=== PATIENT | male | born 1935 | race Caucasian/White ===

== ENCOUNTER 2019-09-11 20:17 | Inpatient (IN) | payer MEDICARE ==
[~2019-09-11 20:17] MED LIST: Iopamidol-370 76% 500 ML 1 ML ONE
[2019-09-11] MEDS ORDERED: Ondansetron PF 4 MG/2 ML Vial ONE (21:09)
[2019-09-11] MEDS ORDERED: Morphine 2 MG/ML SYRINGE ONE (21:09)
[2019-09-11 21:22] LABS: ALT (SGPT) 16 U/L (8-55); AST (SGOT) 17 U/L (5-34); Albumin 4.2 g/dL (3.4-4.8); Alkaline Phosphatase 55 U/L (40-110); Anion Gap 15 mmol/L (10-20); BUN (Urea Nitrogen) 18 mg/dL (9.8-20.1); Band 19 % (5-11); Bilirubin, Total 2.6 mg/dL (0.2-1.2); Calc. Creatinine Clearance 0 mL/min (70-130); Calcium 9.6 mg/dL (7.8-10.44); Carbon Dioxide 23 mmol/L (23-31); Chloride 104 mmol/L (98-107); Estimated GFR-MDRD 66; Globulin 3.2 g/dL (2.4-3.5); Glucose 133 mg/dL (83-110); Hemoglobin 15.2 g/dL (12.0-16.0); Lipase 4 U/L (8-78); Lymphocytes 6 % (21-51); MDiff Complete? YES; Mean Corpuscular HGB CONC 34.6 g/dL (32.0-36.0); Mean Corpuscular Hemoglobin 30.7 pg (27.0-31.0); Mean Corpuscular Volume 88.7 fL (78.0-98.0); Mean Platelet Volume 6.8 fL (7.4-10.4); Monocytes 3 % (0-10); Neutrophil 72 % (42-75); Platelet Count 503 thou/uL (130-400); Potassium 3.7 mmol/L (3.5-5.1); Protein, Total 7.4 g/dL (6.0-8.3); RBC Distribution Width 13.1 % (11.5-14.5); Red Blood Cell (RBC) Count 4.96 mill/uL (4.20-5.40); Sodium 138 mmol/L (136-145); White Blood Cell (WBC) Count 22.3 thou/uL (4.8-10.8)
[2019-09-11 22:01] LABS: Bacteria/HPF None Seen HPF (None Seen); Bilirubin Negative (Negative); Blood, Urine Negative (Negative); Clarity Clear (Clear); Glucose, Urine (Dipstick) Normal (Negative); Ketone, Urine Negative (Negative); Leukocyte Negative Leu/uL (Negative); Nitrite Negative (Negative); Protein, Urine (Dipstick) 30 mg/dL (Neg-Trace); RBC/HPF 0-3 HPF (0-3); Specific Gravity, Urine 1.026 (1.002-1.036); Squamous Epithelial 0-3 HPF (0-3); Urobilinogen Normal mg/dL (Less than 2); WBC/HPF 0-3 HPF (0-3)
--- NOTE | 2019-09-11 22:01 | CT ---
CT Abdomen Pelvis W Con History: Lower abdomen pain Comparison: None. Findings: Mild scarring atelectasis lung bases. No pericardial effusion. Aortic contour is nonaneurysmal. Liver is unremarkable. Celiac trunk and superior mesenteric arteries are patent. No hydronephrosis. Small exophytic hypodensity inferior pole right kidney likely a cyst. Cholelithiasis without cholecys titis. Calcified granulomas of the spleen. Pancreas is unremarkable. Normal proximal small bowel rotation. There is high-grade some mucosal edema and thickening of the cecum which is redundant. There is also ascending colon portion of the transverse colon which also has mild wall thickening. Mild inflammation of the omentum. The right colon and ileocolic branches of the superior mesenteric artery are patent. The appendix is visualized and appears relatively normal. Facet arthrosis lower lumbar spine. No acute osseous abnormality. Modic type III endplate change at L 5-S1. Impression: 1. Findings of cecal, ascending colon and transverse colitis likely infectious or inflammatory given the superior mesenteric artery as well as the right colic and transverse colic branches are patent. Given patient's age, follow-up colonoscopy after treatment recommended. 2. Cholelithiasis without cholecystitis.
[2019-09-11] MEDS ORDERED: Cefepime 2 GM VIAL ONE (22:21)
[2019-09-11] MEDS ORDERED: Vancomycin 1 GM/200 ML BAG ONE (23:00)
[2019-09-12] MEDS ORDERED: Succinylcholine Chloride 20 MG/ML 10 ml SYRINGE FS ONE (00:30)
[2019-09-12] MEDS ORDERED: Fentanyl 100 MCG/2 ML VIAL ONE ×2 (00:43→00:45)
[2019-09-12] MEDS ORDERED: Ondansetron ODT 4 MG TAB PO PRN (02:05)
[2019-09-12] MEDS ORDERED: Ondansetron PF 4 MG/2 ML Vial IVP PRN (02:05)
[2019-09-12] MEDS ORDERED: Acetaminophen 325 MG TAB PO PRN (02:05)
[2019-09-12] MEDS ORDERED: Ventilator Sedation Protocol 1 EACH FS ONE (02:05)
[2019-09-12] MEDS ORDERED: Acetaminophen 650 MG Suppository PR PRN (02:05)
[2019-09-12] MEDS ORDERED: Fentanyl BOLUS 250 ML IVPB PRN (02:22)
[2019-09-12] MEDS ORDERED: fentaNYL Citrate/PF 2,000 MCG in Sodium Chloride 0.9% 60 ML IV SCH (02:22)
[2019-09-12] MEDS ORDERED: Propofol BOLUS 1,000 MG/100 ML VIAL IV PRN (02:22)
[2019-09-12] MEDS ORDERED: DISCONTINUE PREVIOUS NARCOTIC PAIN MEDICATIONS AND BENZODIAZEPINES FS SCH (02:22)
--- NOTE | 2019-09-12 02:27 | PDOC.HHP ---
Hospitalist HPI - History of Present Illness abdominal pain History of Present Illness: most of the history was obtain from ED and old records. during my evaluation patient was sedated and on MV. no family member were present at the moment of my evaluation. Case of an 84y/o male with pmhx of htn dm and bone cancer who comes to hospital with abdominal pain. apparently patient was on his usual state of health until 1 day ago when he started with abdominal pain with associated nausea and vomiting. he denies any fever chills diarrhea or dysuria. patient receive abd abdominal ct and was diagnose with extensive colitis. patient is a and was going to be transferred to [facility] but before transfer took place patient started with rapidly progressive sob and dyspnea that required oxygen supplementation and subsequent intubation. Hospitalist ROS - Review of Systems ROS unobtainable: due to endotracheal tube Hospitalist History - Past Medical History Source: old records Cardiac: reports: HTN Heme/Onc: reports: Cancer Endocrine: reports: Diabetes - Past Surgical History Other Surgical History: back surgery - Family History Other Family History: unable to asses due to MV - Exam General - other findings: sedated on MV Eye: PERRL, anicteric sclera ENT: normocephalic atraumatic, no oropharyngeal lesions Neck: supple, symmetric, no JVD Heart: RRR, no murmur, no gallops Respiratory: CTAB, no wheezes, no rales, no ronchi Gastrointestinal: soft, non-distended, normal bowel sounds Extremities: no cyanosis, no clubbing, no edema Skin: normal turgor, no lesions, no rashes Neurological - other findings: sedated Musculoskeletal: normal tone, no muscle wasting Psychiatric - other findings: sedated Hospitalist Results - Labs Result Diagrams: 09/11/19 20:50 09/11/19 20:50 Lab results: WBC 22.3 thou/uL (4.8-10.8) H 09/11/19 20:50 Hgb 15.2 g/dL (12.0-16.0) 09/11/19 20:50 Hct 44.0 % (36.0-47.0) 09/11/19 20:50 MCV 88.7 fL (78.0-98.0) 09/11/19 20:50 Plt Count 503 thou/uL (130-400) H 09/11/19 20:50 Band Neuts % (Manual) 19 % (5-11) H 09/11/19 20:50 Sodium 138 mmol/L (136-145) 09/11/19 20:50 Potassium 3.7 mmol/L (3.5-5.1) 09/11/19 20:50 Chloride 104 mmol/L (98-107) 09/11/19 20:50 Carbon Dioxide 23 mmol/L (23-31) 09/11/19 20:50 BUN 18 mg/dL (9.8-20.1) 09/11/19 20:50 Creatinine 0.83 mg/dL (0.6-1.1) 09/11/19 20:50 Glucose 133 mg/dL (83-110) H 09/11/19 20:50 Lactic Acid 1.8 mmol/L (0.5-2.2) 09/11/19 21:57 Calcium 9.6 mg/dL (7.8-10.44) 09/11/19 20:50 Total Bilirubin 2.6 mg/dL (0.2-1.2) H 09/11/19 20:50 AST 17 U/L (5-34) 09/11/19 20:50 ALT 16 U/L (8-55) 09/11/19 20:50 Alkaline Phosphatase 55 U/L (40-110) 09/11/19 20:50 Troponin I 0.042 ng/mL (< 0.028) H 09/12/19 01:42 Serum Total Protein 7.4 g/dL (6.0-8.3) 09/11/19 20:50 Albumin 4.2 g/dL (3.4-4.8) 09/11/19 20:50 Lipase 4 U/L (8-78) L 09/11/19 20:50 Urine Ketones Negative mg/dL (Negative) 09/11/19 21:45 Urine Blood Negative (Negative) 09/11/19 21:45 Urine Nitrite Negative (Negative) 09/11/19 21:45 Ur Leukocyte Esterase Negative Landry/uL (Negative) 09/11/19 21:45 Urine RBC 0-3 HPF (0-3) 09/11/19 21:45 Urine WBC 0-3 HPF (0-3) 09/11/19 21:45 Ur Squamous Epith Cells 0-3 HPF (0-3) 09/11/19 21:45 Urine Bacteria None Seen HPF (None Seen) 09/11/19 21:45 - EKG Interpretation EKG: no acute st changes - Radiology Interpretation Chest x-ray Additional Comment: cardiomegaly, wide mediastinum - unchaged since 2004\ ett + ogt seen Hospitalist H&P A/P - Problem (1) Respiratory failure requiring intubation Code(s): J96.90 - RESPIRATORY FAILURE, UNSP, UNSP W HYPOXIA OR HYPERCAPNIA Status: Acute (2) Sepsis Code(s): A41.9 - SEPSIS, UNSPECIFIED ORGANISM Status: Acute (3) Colitis Code(s): K52.9 - NONINFECTIVE GASTROENTERITIS AND COLITIS, UNSPECIFIED Status : Acute (4) HTN (hypertension) Code(s): I10 - ESSENTIAL (PRIMARY) HYPERTENSION Status: Acute (5) Diabetes Code(s): E11.9 - TYPE 2 DIABETES MELLITUS WITHOUT COMPLICATIONS Status: Acute - Plan Plan: 84y/o male with the stated pmhx who comes to hospital due to abdominal pain. Dx with colitis, was been transfered to [facility]. Started with sudden respiratory distress that required mechanical ventilation respiratory failure - intubated at the ED - unclear reason for decompensation. DDx PE / fluid overload / acs. unable to get cta due to pt already receive contrast for abdominal ct. will send d dimer and start full anticoagulation prophylactically until PE is r/o. will also order serial troponins and 2decho - pulmo /crit consulted -f/u abgs sepsis / colitis - tachycardia with elevated wbc and abd ct consistent with colitis - f/u blood, stools and urine cultures - normal LA - continue with IV hydration - on cefepime and vanc DM - npo - accu checks q 6hrs, ss htn - holding medication for now in the setting of sepsis
[2019-09-12] MEDS: Sodium Chloride 0.9% 1,000 ML IV SCH ×3 (02:30→17:55)
[2019-09-12] MEDS ORDERED: Vancomycin 1 GM in Premix Bag 1 BAG IVPB SCH (02:30)
[2019-09-12 02:33] LABS: CKMB 2.8 ng/mL (0-6.6)
[2019-09-12] MEDS ORDERED: Dextrose 5% in Water 1,000 ML IV PRN (02:34)
[2019-09-12] MEDS ORDERED: Dextrose 50% Abboject 50 ML SYRINGE SLOW IVP PRN (02:34)
[2019-09-12] MEDS ORDERED: metroNIDAZOLE 500 MG in Premix Bag 1 BAG IVPB SCH ×2 (02:45→04:00)
[2019-09-12] MEDS ORDERED: Enoxaparin Sodium 100 MG/ML SYRINGE SC SCH ×2 (02:45→21:00)
[2019-09-12] MEDS ORDERED: Norepinephrine 8 MG/0.9% NS 250 ML ONE (03:36)
[2019-09-12] MEDS ORDERED: Norepinephrine 8 MG/0.9% NS 250 ML IVPB SCH (04:19)
[2019-09-12] MEDS ORDERED: Sodium Chloride 0.9% 1,000 ML IV SCH (04:45)
[2019-09-12 05:18] LABS: Anion Gap 14 mmol/L (10-20); BUN (Urea Nitrogen) 17 mg/dL (8.4-25.7); Calc. Creatinine Clearance 98 mL/min (70-130); Carbon Dioxide 19 mmol/L (23-31); Chloride 110 mmol/L (98-107); Estimated GFR-MDRD 90; Potassium 3.7 mmol/L (3.5-5.1); Sodium 139 mmol/L (136-145)
[2019-09-12 05:19] LABS: ALT (SGPT) 13 U/L (8-55); AST (SGOT) 23 U/L (5-34); Albumin 3.5 g/dL (3.4-4.8); Alkaline Phosphatase 70 U/L (40-110); Bilirubin, Total 1.7 mg/dL (0.2-1.2); Calcium 8.1 mg/dL (7.8-10.44); Globulin 2.7 g/dL (2.4-3.5); Glucose 133 mg/dL (83-110); Magnesium 1.8 mg/dL (1.6-2.6); Phosphorus 3.2 mg/dL (2.3-4.7); Protein, Total 6.2 g/dL (5.8-8.1)
[2019-09-12 05:20] LABS: Troponin I 0.429 ng/mL (< 0.028)
[2019-09-12 05:23] LABS: Lactic Acid 1.5 mmol/L (0.5-2.2)
[2019-09-12 05:53] LABS: Band 29 % (5-11); Hemoglobin 13.7 g/dL (14.0-18.0); Lymphocytes 4 % (21-51); MDiff Complete? YES; Mean Corpuscular HGB CONC 32.3 g/dL (32.0-36.0); Mean Corpuscular Hemoglobin 29.6 pg (27.0-31.0); Mean Corpuscular Volume 91.7 fL (78.0-98.0); Mean Platelet Volume 7.2 fL (7.4-10.4); Monocytes 1 % (0-10); Neutrophil 66 % (42-75); Platelet Count 441 thou/uL (130-400); RBC Distribution Width 13.1 % (11.5-14.5); Red Blood Cell (RBC) Count 4.62 mill/uL (4.70-6.10); White Blood Cell (WBC) Count 21.3 thou/uL (4.8-10.8)
[2019-09-12 06:57] LABS: Actual Bicarbonate (HCO3a) 20.7 mEq/L (22-28); Base Excess (BEa) -5.8 mEq/L (-2.0 to +3.0); CO2 Tension 44.5 mmHg (35.0-45.0); Calcium, Ionized (arterial) 1.16 mmol/L (1.12-1.30); Carboxyhemoglobin (COHb) 0.4 gm% (0.0-3.0); Hemoglobin (Hb) 14.1 g/dL (14.0-18.0); O2 Tension (PaO2), arterial 70.1 mmHg (> 60.0); Potassium - ABG Lab 3.57 mmol/L (3.70-5.30); pH, Arterial 7.29 (7.35-7.45)
[2019-09-12 07:42] LABS: Puncture Site RRAD
[2019-09-12 07:43] LABS: ALV-art Gradient 373.375 (0-20)
--- NOTE | 2019-09-12 07:57 | RAD ---
PORTABLE CHEST: DATE: 09/12/2019. PROVIDED CLINICAL HISTORY: Sepsis. FINDINGS: Comparison 09/12/2019. Examination is rotated, limiting assessment. Allowing for differences in posit ion, a significant interval change with respect to the prior examination is not apparent. IMPRESSION: As above. POS: MIGUEL
--- NOTE | 2019-09-12 08:43 | RAD ---
PORTABLE CHEST: DATE: 09/12/2019. PROVIDED CLINICAL HISTORY: Respiratory insufficiency. FINDINGS: Comparison 09/12/2019, 12:30 a.m. Interval placement of endotracheal tube, the tip of which projects j ust caudal to the thoracic inlet. An enteric catheter is now present, the tip of which is not visual ized but is below the diaphragm. Additional significant interval change with respect to the prior ex amination is not apparent. IMPRESSION: As above. POS: MIGUEL
[2019-09-12] MEDS ORDERED: Prevnar 13-Val Conj/PF 0.5 ML SYRINGE IM ONE (09:00)
--- NOTE | 2019-09-12 09:05 | RAD ---
PORTABLE CHEST: DATE: 09/12/2019. PROVIDED CLINICAL HISTORY: Shortness of breath. FINDINGS: No comparisons. The cardiac silhouette appears enlarged. Prominence of the pulmonary vasculature an d pulmonary interstitium. No focal consolidation, pleural fluid, or pneumothorax apparent. IMPRESSION: Cardiomegaly and findings suggesting congestive failure. POS: MIGUEL
[2019-09-12] MEDS: Cefepime 2 GM in Sodium Chloride 0.9% 100 ML IVPB SCH ×2 (09:50→22:01)
[2019-09-12] MEDS: Famotidine/PF 20 mg/2ml Vial SLOW IVP SCH ×2 (09:50→22:01)
--- NOTE | 2019-09-12 13:28 | CON ---
DATE OF CONSULTATION: 09/12/2019 HISTORY OF PRESENT ILLNESS: Daniel Harper is an 84-year-old male. He has been consulted by the nursing staff because of his presence in Critical Care Unit. According to the admission history and physical, he presented with abdominal pain and was intubated. His CT of his abdomen shows right transverse colon inflammatory changes. [facility], [facility] He has never been here before on looking at the records. PAST MEDICAL HISTORY: Remarkable for, 1. Some type of bone cancer, it is unclear whether or not this is myeloma. 2. History of hypertension. I did find a note from [address] Yuen stating he had a long history of alcohol abuse, hypertension, and alcohol withdrawal, treated with Librium. He also has a history of alcoholic hepatitis. He is reported to be a smoker at that time. FAMILY HISTORY: Negative for lung disease in early age. REVIEW OF SYSTEMS: Not obtainable. PHYSICAL EXAMINATION: VITAL SIGNS: His heart rate is in the 60s, blood pressure 90/62, respiratory rate is in the 20s, and afebrile. HEENT: Pupils are reactive. Sclerae are anicteric. NECK: Without lymphadenopathy. LUNGS: Distant, clear. HEART: Regular rhythm. S1 and S2 are normal. ABDOMEN: He has some guarding in his right lateral and lower quadrants. EXTREMITIES: Without clubbing, cyanosis or edema. DIAGNOSTIC DATA: Chest radiograph shows cardiomegaly. The film is under penetrated. LABORATORY DATA: White count 21.3, hemoglobin 13.7, and platelets 441. He has 29% bands on his peripheral smear. Sodium 139, potassium 3.7, chloride 110, bicarb 19, BUN 17, and creatinine 0.8. Bilirubin is 1.7. Liver enzymes are normal. PH , pCO2 of 44, and pO2 of 70. IMPRESSION: 1. Respiratory failure. 2. Underlying metabolic acidosis in part secondary to hyperchloremia. It could also be secondary in part to sepsis or ischemic bowel. Gastroenterology was consulted by me this morning via phone call. Appreciate their input. Critical care time 30 min. Job ID: [id number] MTDD
--- NOTE | 2019-09-12 13:37 | PDOC.HOSPP ---
- Subjective Encounter Date: 09/12/19 Encounter Time: 09:35 Subjective: is awake, follows verbal stimuli, a bit anxious, is on vent - Objective Vital Signs & Weight: Vital Signs (12 hours) Temp Pulse Resp Pulse Ox 09/12/19 12:00 98 F 09/12/19 10:27 70 09/12/19 10:00 20 09/12/19 08:00 18 09/12/19 07:00 95 09/12/19 06:00 18 09/12/19 04:00 18 09/12/19 03:29 93 L 09/12/19 03:00 99.1 F 09/12/19 02:30 18 Weight Admit Weight 220 lb 7.396 oz Weight 220 lb 7.396 oz Most Recent Monitor Data Heart Rate from ECG 63 NIBP 90/62 NIBP BP-Mean 71 Respiration from ECG 20 SpO2 94 I&O: 09/11/19 09/12/19 09/13/19 06:59 06:59 06:59 Intake Total 4241 Output Total 125 155 Balance 4116 -155 Result Diagrams: 09/12/19 03:57 09/12/19 03:57 Additional Labs: Accuchecks 09/12/19 11:19 POC Glucose 124 H Hospitalist ROS - Medication Medications: Active Medications Generic Name Dose Route Start Last Admin Trade Name Severiano PRN Reason Stop Dose Admin Famotidine 20 mg 09/12/19 09:00 09/12/19 09:50 Pepcid SLOW IVP 20 mg Q12HR JONATHON Administration Cefepime HCl 2 gm/ Sodium 100 mls @ 200 mls/hr 09/12/19 09:00 09/12/19 09:50 Chloride IVPB 100 mls Q12HR JONATHON Administration Sodium Chloride 1,000 mls @ 100 mls/hr 09/12/19 02:15 09/12/19 02:30 Normal Saline 0.9% IV 1,000 mls .Q10H JONATHON Administration - Exam General Appearance: awake alert Eye: anicteric sclera ENT: no oropharyngeal lesions, dry oral mucosa Neck: supple, no JVD Heart: RRR, no murmur Respiratory: no wheezes, no rales Gastrointestinal: soft, non-distended, normal bowel sounds, no guarding, no rigidity Extremities: no cyanosis, no edema Neurological: cranial nerve grossly intact, no focal deficits Hosp A/P (1) Sepsis Code(s): A41.9 - SEPSIS, UNSPECIFIED ORGANISM Status: Acute Qualifiers: Sepsis type: sepsis due to unspecified organism Sepsis acute organ dysfunction status: with acute organ dysfunction Severe sepsis acute organ dysfunction type: acute respiratory failure Acute respiratory failure type: with hypoxia Severe sepsis shock status: without septic shock Qualified Code (s): A41.9 - Sepsis, unspecified organism; R65.20 - Severe sepsis without septic shock; J96.01 - Acute respiratory failure with hypoxia (2) Acute respiratory failure with hypoxia Code(s): J96.01 - ACUTE RESPIRATORY FAILURE WITH HYPOXIA Status: Acute (3) Acute colitis Code(s): K52.9 - NONINFECTIVE GASTROENTERITIS AND COLITIS, UNSPECIFIED Status : Acute (4) DM type 2 (diabetes mellitus, type 2) Status: Chronic Qualifiers: Diabetes mellitus buttermaker helper insulin use: without buttermaker helper use (5) Parkinson disease Code(s): G20 - PARKINSON'S DISEASE Status: Suspected (6) HTN (hypertension) Code(s): I10 - ESSENTIAL (PRIMARY) HYPERTENSION Status: Chronic Qualifiers: Hypertension type: essential hypertension Qualified Code(s): I10 - Essential (primary) hypertension - Plan weaning per pulm advice will dc full dose lovenox (not sure the reason?) and switch to dvt prophylaxis is on cefepime, flagyl and vanc, iv fluids hemostable
[2019-09-12] MEDS: metroNIDAZOLE 500 MG in Premix Bag 1 BAG IVPB SCH ×2 (13:54→20:21)
[2019-09-12 15:27] LABS: Anion Gap 13 mmol/L (10-20); BUN (Urea Nitrogen) 19 mg/dL (8.4-25.7); Calc. Creatinine Clearance 101 mL/min (70-130); Calcium 8.3 mg/dL (7.8-10.44); Carbon Dioxide 19 mmol/L (23-31); Chloride 111 mmol/L (98-107); Estimated GFR-MDRD Greater than 90; Glucose 111 mg/dL (83-110); Lipase 5 U/L (8-78); Potassium 3.9 mmol/L (3.5-5.1); Sodium 139 mmol/L (136-145)
[2019-09-12] MEDS: Vancomycin 1.5 GRAM/300 ML BAG 1.5 GM in Premix Bag 1 BAG IVPB SCH (15:43)
--- NOTE | 2019-09-12 16:26 | CON ---
DATE OF CONSULTATION: 09/12/2019 REASON FOR CONSULT: "Colitis." HISTORY OF PRESENT ILLNESS: Mr. Harper is an 84-year-old gentleman who was admitted to the hospital last night for possible "sepsis." He was intubated. I am told he was short of breath. The patient is not able to add a history. History comes from review of the chart and a brief conversation with the patient's sister. She states he called her yesterday and stated his lower abdomen felt bad. She thinks that it just started that day, but is not sure. She is not aware of any fever or diarrhea that he has had or an antecedent colon problems. She notes that he thought maybe one of his stents in his leg was not working right because he had pain in his groin. She is not sure which side. Ultimately, he was brought to the emergency room and found to be quite ill, had labs, cultures, intubated, started on antibiotics. She states the only thing she knows about his medical history is that he has had a back surgery in the past and that he recently is being treated for bone cancer at the [facility] [place] and that they had told him they have done all they could do for him and that he told her that he had been told that they expected him to have about 6 months. The type of bone cancer, she is not aware of. The patient could add no history. He is heavily sedated. The nurse notes he was complaining of being cold earlier. ER events, had a pulse 84, blood pressure 90/59, and respirations of 18, 100% saturation on 2 L apparently. The notes from the ER doctor indicate that he complained of one day of lower abdominal discomfort with nausea. Denied fever, diarrhea, or urinary symptoms. PAST MEDICAL HISTORY: Diabetes, hypertension, history of bone cancer apparently in his leg, anxiety and depression. PAST SURGICAL HISTORY: Includes vascular stent in the right leg, lumbar spine surgery. SOCIAL HISTORY: Per the ER, there was no history of alcohol or drug use. ALLERGIES: PENICILLIN. MEDICATIONS: Home, documented with Emergency Room include 1. Hydroxyzine 10 mg daily. 2. Metoprolol 100 mg daily. 3. Metformin 500 mg daily. 4. Tylenol 3. Before he was intubated yesterday, he was tender in the left lower quadrant, in the right lower quadrant, the suprapubic region quite severe. He was given fentanyl, 2 L of fluids and ultimately intubated. He was given cefepime in the ER as well as some Zofran. It seems that he started off on oxygen, non-rebreather, and BiPAP, and we continued duration he was intubated. He was diagnosed with "sepsis secondary to colitis." Medications here 1. Cefepime 2 g q.12. 2. Lovenox. 3. P.r.n. fentanyl. 4. Insulin sliding scale. 5. Ativan. 6. Flagyl 500 mg IV q.8. 7. P.r.n. morphine. 8. Levophed, titrate. 9. Propofol. 10. Vancomycin 1.5 g q.12. REVIEW OF SYSTEMS: Unable to be obtained. FAMILY HISTORY: Unable to be obtained. PHYSICAL EXAMINATION: VITAL SIGNS: Temperature here 99.1 at 3 in the morning, noon 98; pulse 62; respirations 70. GENERAL: He is intubated, he withdraws to painful stimuli. LUNGS: Clear. HEART: Regular rate and rhythm without clicks or murmurs. ABDOMEN: Soft and nontender. Bowel sounds are quiescent. There is no rebound. There is no guarding. There are no inguinal hernias. Scrotal area is normal. There is no palpable hepatosplenomegaly. The abdomen is protuberant but soft. No fluid wave or shifting dullness. EXTREMITIES: No clubbing, cyanosis, or edema. Pulses are present both lower extremities are weak. There is good color in extremities all four. HEENT: Pupils are equal, round, react to light and accommodation. LABORATORY DATA: [place] count [place] [address] last night, 21,000 today. Hemoglobin down from 15 to 13, platelets 503 to 441, bands 29%. D-dimer was 2.44. Blood gas, 6 this morning, 7.29, PO2 of 70, pCO2 of 44. On admission yesterday, electrolytes were normal with BUN and creatinine of 18 and 0.8, bicarb is 23 and anion gap was calculated at 15. Lactic acid was 1.8, total bilirubin is 2.6. AST and ALT are 17 and 16, alkaline phosphatase 55, lipase 4, albumin 4.2, protein 7. Troponin was 0.042. Today's troponin is 0.429. BNP is 277. Liver function tests are normal with a bilirubin of 1.7. Sodium 139, potassium 3.7, chloride 109, bicarb 19, anion gap is 9, calculated BUN is 17, creatinine is 0.9. Lactic acid has not been rechecked. IMAGING STUDIES: CAT scan of abdomen and pelvis last night showed cecal, ascending and transverse colon inflammation. The radiologist felt that SMA as well as the right colic and transverse colic branches were patent. There was mild thickening of omentum as well. He had cholelithiasis without gallbladder thickening. Chest x-ray, no infiltrates. Microbiology, blood cultures are pending. ASSESSMENT: 1. Metabolic acidosis, etiology is unclear. This could be infectious. It could be ischemic. It does not appear that he has cholecystitis. It seems like his colon is probably the problem. There is no history of antecedent antibiotics or antecedent colon problems in talking with the patient's sister on the phone. The patient is unable to give history. His records are not available as he is a [facility] patient. He has no prior records here. 2. Respiratory failure, likely related to metabolic acidosis. 3. History of diabetes. 4. History of bone cancer, what type and where and what the prognosis is, is unclear. The sister states the patient told her that they have treated as much as they can at the [facility] and that he had around 6 months to live. That is not able to be verified at this time. She states she is not aware of any of his resuscitation issues or end of life decision issues such as mechanical ventilatory support ex cetera. RECOMMENDATIONS: 1. Agree with broad-spectrum antibiotics. 2. Aggressive IV fluid resuscitation. 3. Would recheck lactic acid. 4. If the patient has worsening metabolic acidosis, it would be reasonable to consult General Surgery, although in light of his underlying bone cancer diagnosis, unclear if heroic measures are really indicated in this situation. It would be reasonable to consult General Surgery now, so they are aware of the case. Job ID: [id number]
[2019-09-12] MEDS: fentaNYL Citrate/PF 2,000 MCG in Sodium Chloride 0.9% 60 ML IV SCH (16:49)
[2019-09-12] MEDS: Propofol 1,000 MG/100 ML VIAL IV PRN (17:40)
[2019-09-12] MEDS: Lorazepam 2 MG/ML VIAL SLOW IVP PRN (20:21)
--- NOTE | 2019-09-12 22:07 | OP ---
DATE OF PROCEDURE: 09/12/2019 PREOPERATIVE DIAGNOSIS: Acute hypotension, need for vasopressor support. POSTOPERATIVE DIAGNOSIS: Acute hypotension, need for vasopressor support. PROCEDURE PERFORMED: Placement of triple-lumen left subclavian central venous catheter. INDICATIONS FOR PROCEDURE: This is an 84-year-old man, admitted to intensive care unit on mechanical ventilator support. The patient is hypotensive, requiring vasopressor support. I was asked to place a central venous catheter to facilitate therapeutics. DESCRIPTION OF PROCEDURE: Informed consent was obtained from family. The patient was placed in supine position. Left chest wall sterilely prepped and draped in usual fashion. Skin below the left clavicle was anesthetized with 1% lidocaine. Left subclavian vein was cannulated with an 18-gauge introducer needle returning dark venous blood. Guidewire was passed through the needle and advanced in the left subclavian vein without resistance. Needle was withdrawn over the guidewire. A stab incision was made adjacent to the guidewire using 11 scalpel. A dilator was passed over the guidewire dilating the subcutaneous tissues. The dilator was removed. Triple-lumen central venous catheter was advanced over the guidewire and placed in the left subclavian vein without resistance stopping at the 18 cm chyna. Guidewire was removed. Dark venous blood was aspirated from all three ports which were individually flushed with saline. Catheter was secured to anterior chest wall using 3-0 silk suture at two points. Sterile dressings were applied. The patient tolerated the procedure without any apparent complications. Chest x-ray was obtained confirming proper placement of the central venous catheter and no pneumothorax present. Job ID: [id number]
--- NOTE | 2019-09-12 22:13 | RAD ---
EXAM: CHEST ONE VIEW HISTORY: Central line placement. COMPARISON: 09/12/2019 at 1618 hours. FINDINGS: Endotracheal tube and nasogastric tube remain in place. There has been interval placement of a left s ubclavian central venous catheter with tip overlying the expected location of proximal SVC. No pneumothorax is appreciated. Cardiac silhouette remains enlarged. Pulmonary vasculature is within nor mal limits. Volume loss is present at each lung base. No other interval change. IMPRESSION: 1. Lines and tubes in place as described above. No pneumothorax is seen. 2. Cardiomegaly. 3. Volume loss each lung base.
[2019-09-13] MEDS: Vancomycin 1.5 GRAM/300 ML BAG 1.5 GM in Premix Bag 1 BAG IVPB SCH ×2 (01:40→14:35)
[2019-09-13 03:52] LABS: Anion Gap 12 mmol/L (10-20); BUN (Urea Nitrogen) 15 mg/dL (8.4-25.7); Calc. Creatinine Clearance 115 mL/min (70-130); Calcium 7.9 mg/dL (7.8-10.44); Carbon Dioxide 20 mmol/L (23-31); Chloride 110 mmol/L (98-107); Estimated GFR-MDRD Greater than 90; Glucose 102 mg/dL (83-110); Lipase 5 U/L (8-78); Potassium 3.3 mmol/L (3.5-5.1); Sodium 139 mmol/L (136-145)
[2019-09-13] MEDS: Sodium Chloride 0.9% 1,000 ML IV SCH ×4 (04:28→23:20)
[2019-09-13] MEDS: metroNIDAZOLE 500 MG in Premix Bag 1 BAG IVPB SCH ×3 (04:33→20:07)
[2019-09-13] MEDS: Propofol 1,000 MG/100 ML VIAL IV PRN ×3 (04:34→17:13)
[2019-09-13] MEDS: Famotidine/PF 20 mg/2ml Vial SLOW IVP SCH ×2 (09:05→20:06)
[2019-09-13] MEDS: Cefepime 2 GM in Sodium Chloride 0.9% 100 ML IVPB SCH ×2 (09:05→21:34)
[2019-09-13] MEDS: Enoxaparin Sodium 40 MG/0.4 ML SYRINGE SC SCH (09:06)
[2019-09-13 09:07] LABS: #Eosinphils 0.4 thou/uL (0.0-0.7); #Monocytes 0.5 thou/uL (0.11-0.59); #Neutrophils 9.2 thou/uL (1.40-6.50); %Basophils 0.4 % (0.0-1.0); %Eosinophils 3.2 % (0.0-10.0); %Lymphocytes 8.8 % (21.0-51.0); %Monocytes 4.9 % (0.0-10.0); %Neutrophils 82.7 % (42.0-75.0); Mean Corpuscular HGB CONC 33.4 g/dL (32.0-36.0); Mean Corpuscular Hemoglobin 30.6 pg (27.0-31.0); Mean Corpuscular Volume 91.7 fL (78.0-98.0); Platelet Count 389 thou/uL (130-400); RBC Distribution Width 13.1 % (11.5-14.5); Red Blood Cell (RBC) Count 4.24 mill/uL (4.70-6.10); White Blood Cell (WBC) Count 11.1 thou/uL (4.8-10.8)
--- NOTE | 2019-09-13 13:00 | PDOC.HOSPP ---
- Subjective Encounter Date: 09/13/19 Encounter Time: 11:00 Subjective: on vent, is sedated - Objective Vital Signs & Weight: Vital Signs (12 hours) Temp Pulse Resp Pulse Ox 09/13/19 12:00 15 09/13/19 10:00 20 09/13/19 09:58 60 09/13/19 08:00 20 09/13/19 07:43 61 09/13/19 07:28 98 09/13/19 07:00 98.6 F 09/13/19 06:00 20 09/13/19 04:00 97.6 F 09/13/19 02:00 20 Weight Admit Weight 220 lb 7.396 oz Weight 220 lb 7.396 oz Most Recent Monitor Data Heart Rate from ECG 63 NIBP 137/72 NIBP BP-Mean 93 Respiration from ECG 14 SpO2 96 I&O: 09/12/19 09/13/19 09/14/19 06:59 06:59 06:59 Intake Total 4241 3770.1 Output Total 125 991 185 Balance 4116 2779.1 -185 Result Diagrams: 09/13/19 08:51 09/13/19 03:19 Additional Labs: Accuchecks 09/13/19 09/13/19 09/12/19 10:28 00:02 18:25 POC Glucose 90 109 109 Hospitalist ROS - Medication Medications: Active Medications Generic Name Dose Route Start Last Admin Trade Name Freq PRN Reason Stop Dose Admin Enoxaparin Sodium 40 mg 09/13/19 09:00 09/13/19 09:06 Lovenox SC 40 mg 0900 JONATHON Administration Famotidine 20 mg 09/12/19 09:00 09/13/19 09:05 Pepcid SLOW IVP 20 mg Q12HR JONATHON Administration Fentanyl Citrate 2,000 mcg/ 100 mls @ 0 mls/hr 09/12/19 00:43 09/12/19 16:49 Sodium Chloride IV 10/12/19 00:43 100 mls INF JONATHON Administration Protocol Per Protocol Cefepime HCl 2 gm/ Sodium 100 mls @ 200 mls/hr 09/12/19 09:00 09/13/19 09:05 Chloride IVPB 100 mls Q12HR JONATHON Administration Sodium Chloride 1,000 mls @ 150 mls/hr 09/12/19 02:15 09/13/19 12:35 Normal Saline 0.9% IV 1,000 mls .Q6H40M JONATHON Administration Metronidazole 500 mg/ Device 100 mls @ 100 mls/hr 09/12/19 12:00 09/13/19 12: 36 IVPB 100 mls 0400,1200,2000 JONATHON Administration Vancomycin HCl 1.5 gm/ Device 300 mls @ 200 mls/hr 09/12/19 14:00 09/13/19 01 :40 IVPB 300 mls 0200,1400 JONATHON Administration Dexmedetomidine HCl 400 mcg/ 100 mls @ 0 mls/hr 09/13/19 11:45 09/13/19 12:25 Sodium Chloride IVPB 100 mls INF JONATHON Administration Protocol Per Protocol Lorazepam 2 mg 09/12/19 02:22 09/12/19 20:21 Ativan SLOW IVP 10/12/19 02:22 2 mg Q1H PRN Administration Breakthrough agitation Propofol 1,000 mg 09/12/19 02:22 09/13/19 09:16 Diprivan IV 10/12/19 02:22 1,000 mg INF PRN Administration TO ACHIEVE GOAL RASS Protocol - Exam Eye: PERRL, anicteric sclera ENT: no oropharyngeal lesions, dry oral mucosa Neck: supple, no JVD Heart: RRR, no murmur Respiratory: no wheezes, no rales Gastrointestinal: soft, non-tender, non-distended, normal bowel sounds Extremities: no cyanosis, no edema Neurological: cranial nerve grossly intact, no focal deficits Hosp A/P (1) Sepsis Code(s): A41.9 - SEPSIS, UNSPECIFIED ORGANISM Status: Acute Qualifiers: Sepsis type: sepsis due to unspecified organism Sepsis acute organ dysfunction status: with acute organ dysfunction Severe sepsis acute organ dysfunction type: acute respiratory failure Acute respiratory failure type: with hypoxia Severe sepsis shock status: without septic shock Qualified Code (s): A41.9 - Sepsis, unspecified organism; R65.20 - Severe sepsis without septic shock; J96.01 - Acute respiratory failure with hypoxia (2) Acute respiratory failure with hypoxia Code(s): J96.01 - ACUTE RESPIRATORY FAILURE WITH HYPOXIA Status: Acute (3) Acute colitis Code(s): K52.9 - NONINFECTIVE GASTROENTERITIS AND COLITIS, UNSPECIFIED Status : Acute (4) DM type 2 (diabetes mellitus, type 2) Status: Chronic Qualifiers: Diabetes mellitus [facility] insulin use: without [facility] use (5) Parkinson disease Code(s): G20 - PARKINSON'S DISEASE Status: Suspected (6) HTN (hypertension) Code(s): I10 - ESSENTIAL (PRIMARY) HYPERTENSION Status: Chronic Qualifiers: Hypertension type: essential hypertension Qualified Code(s): I10 - Essential (primary) hypertension - Plan weaning per pulm advice will dc full dose lovenox (not sure the reason?) and switch to dvt prophylaxis is on cefepime, flagyl and vanc, iv fluids not on pressor this am hemostable
--- NOTE | 2019-09-13 14:22 | PRG ---
DATE OF SERVICE: 09/13/2019 SUBJECTIVE: Mr. Harper remains intubated. The nurse notes he does not seem to have pain or complaint apparently on lightening the sedation either last night with the power and recovery shift engineer nurse or today. He has not had any bowel movements. They are thinking about extubating him today. OBJECTIVE: VITAL SIGNS: Heart rate is 66, blood pressure 137/72, respirations 18. T-max was 99 yesterday at 3 a.m., on the 3rd. It has been 98.6 today. LUNGS: Clear. ABDOMEN: Soft and nontender. EXTREMITIES: No clubbing, cyanosis, or edema. LABORATORY DATA: White count 11.4, down from 21,000; hemoglobin 13; platelet count 389, down from 503; 82% segs. Sodium 139, potassium 3.3, BUN and creatinine are 15 and 0.7. Lipase is 5. Microbiology; Blood culture is negative at 48 hours. ASSESSMENT: Admission with abdominal pain, leukocytosis, and CT showing left-sided colon inflammation. Radiology did not feel this is ischemic as he had a patent superior mesenteric artery as well as right colic and transverse colic branches. He has had no diarrhea. He does have gallstones, but did not bump his LFTs nor show signs of pancreatitis. He did not become acidotic to a degree one would expect with ischemic bowel. Overall, he seems to be improving. PLAN: If the patient has diarrhea, get stool samples as ordered. Otherwise, we will continue to follow along with you. Continue empiric antibiotics. We will have to get more of a history from him when he gets extubated. Job ID: [id number]
--- NOTE | 2019-09-13 19:48 | PRG ---
DATE OF SERVICE: 09/13/2019 SUBJECTIVE: Leroy remains hemodynamically stable. He remains mechanically ventilated. OBJECTIVE: GENERAL: He is afebrile. Respiratory rates in the low 20s, FiO2 is down to 50%, blood pressure 132/67. LUNGS: Clear anteriorly. HEART: Regular rhythm. ABDOMEN: Soft. He has minimal if any guarding. LABORATORY DATA: White count 11.1, hemoglobin 13, platelets 389. Sodium 139, potassium 3.3, chloride 110, bicarb 20, BUN 15, creatinine 0.7. There is no blood gas today. IMPRESSION: Colitis of unclear etiology. PLAN: We will decrease ventilatory support. Change his sedation round. We will check a blood gas in the morning. Consider weaning and extubation if he remains stable. Gastroenterology input is appreciated. Critical care time 30 min. Job ID: [id number] MTDD
[2019-09-13] MEDS: Morphine 2 MG/ML VIAL SLOW IVP PRN (22:16)
[2019-09-14] MEDS: Morphine 2 MG/ML VIAL SLOW IVP PRN ×2 (00:11→03:19)
[2019-09-14] MEDS: Vancomycin HCl 1.75 GM in Sodium Chloride 0.9% 500 ML IVPB SCH ×2 (02:41→16:13)
[2019-09-14 03:21] LABS: #Eosinphils 0.3 thou/uL (0.0-0.7); #Lymphocytes 0.9 thou/uL (1.20-3.40); #Monocytes 0.5 thou/uL (0.11-0.59); %Basophils 0.2 % (0.0-1.0); %Eosinophils 4.5 % (0.0-10.0); %Lymphocytes 11.2 % (21.0-51.0); %Neutrophils 78.1 % (42.0-75.0); Hemoglobin 12.9 g/dL (14.0-18.0); Mean Corpuscular HGB CONC 33.3 g/dL (32.0-36.0); Mean Corpuscular Hemoglobin 30.2 pg (27.0-31.0); Mean Corpuscular Volume 90.8 fL (78.0-98.0); Mean Platelet Volume 7.4 fL (7.4-10.4); Platelet Count 391 thou/uL (130-400); RBC Distribution Width 13.1 % (11.5-14.5); Red Blood Cell (RBC) Count 4.28 mill/uL (4.70-6.10); White Blood Cell (WBC) Count 7.6 thou/uL (4.8-10.8)
[2019-09-14 03:40] LABS: ALT (SGPT) 13 U/L (8-55); AST (SGOT) 17 U/L (5-34); Alkaline Phosphatase 51 U/L (40-110); Anion Gap 11 mmol/L (10-20); BUN (Urea Nitrogen) 12 mg/dL (8.4-25.7); Bilirubin, Direct 0.5 mg/dL (0.1-0.3); Bilirubin, Total 0.7 mg/dL (0.2-1.2); Calc. Creatinine Clearance 118 mL/min (70-130); Calcium 7.8 mg/dL (7.8-10.44); Carbon Dioxide 20 mmol/L (23-31); Chloride 113 mmol/L (98-107); Estimated GFR-MDRD Greater than 90; Glucose 104 mg/dL (83-110); Potassium 3.3 mmol/L (3.5-5.1); Protein, Total 5.5 g/dL (5.8-8.1); Sodium 141 mmol/L (136-145)
[2019-09-14] MEDS: metroNIDAZOLE 500 MG in Premix Bag 1 BAG IVPB SCH ×3 (04:42→20:35)
[2019-09-14] MEDS: Propofol 1,000 MG/100 ML VIAL IV PRN ×4 (05:22→23:25)
[2019-09-14] MEDS: Sodium Chloride 0.9% 1,000 ML IV SCH ×2 (05:26→13:00)
[2019-09-14 07:44] LABS: Actual Bicarbonate (HCO3a) 16.6 mEq/L (22-28); Base Excess (BEa) -7.7 mEq/L (-2.0 to +3.0); CO2 Tension 30.5 mmHg (35.0-45.0); Calcium, Ionized (arterial) 1.13 mmol/L (1.12-1.30); Carboxyhemoglobin (COHb) 0.4 gm% (0.0-3.0); Hemoglobin (Hb) 13.4 g/dL (14.0-18.0); O2 Tension (PaO2), arterial 77.6 mmHg (> 60.0); Potassium - ABG Lab 3.17 mmol/L (3.70-5.30); pH, Arterial 7.35 (7.35-7.45)
[2019-09-14] MEDS: Cefepime 2 GM in Sodium Chloride 0.9% 100 ML IVPB SCH ×2 (08:05→20:39)
[2019-09-14] MEDS: Enoxaparin Sodium 40 MG/0.4 ML SYRINGE SC SCH (08:07)
[2019-09-14] MEDS: Famotidine/PF 20 mg/2ml Vial SLOW IVP SCH ×2 (08:07→20:36)
[2019-09-14 08:18] LABS: ALV-art Gradient 240.775 (0-20); Puncture Site RRAD
[2019-09-14] MEDS: fentaNYL Citrate/PF 2,000 MCG in Sodium Chloride 0.9% 60 ML IV SCH (09:18)
[2019-09-14] MEDS: D5 1/4 NS 1,000 ML IV SCH ×2 (13:50→23:18)
[2019-09-14] MEDS: Albumin 25% 25 GM/100 ML BOT IVPB SCH ×2 (13:53→20:43)
--- NOTE | 2019-09-14 13:55 | PRG ---
DATE OF SERVICE: 09/14/2019 SUBJECTIVE: Mr. Harper is clinically unchanged. He is sedated for ventilation. OBJECTIVE: VITAL SIGNS: Heart rate is 60, respiratory rates in the teens, FiO2 is 50%, blood pressure 135/74. LUNGS: Remarkable for clear breath sounds. HEART: Regular rhythm. ABDOMEN: Soft. EXTREMITIES: Without edema. NEURO: Grossly nonfocal. LABORATORY DATA: PH 7.35, pCO2 of 30, pO2 of 77. Sodium 141, potassium 3.3, chloride 113, bicarb 20, BUN 12, creatinine 0.68. White count 7.6, hemoglobin 12.9, platelets 391. IMPRESSION AND PLAN: 1. Respiratory failure. 2. Mild metabolic acidosis, is predominantly hyperchloremic. 3. Abdominal discomfort. He is cube machine tender on his right side. He is complaining of pain last night. We will continue supportive care. Decrease ventilatory support slightly today and continue with planning on a spontaneous breathing trial in the morning. He clinically does not appear to have bowel. We will discontinue the normal saline and switch him to D5 quarter normal saline. He may benefit from an albumin infusion. Job ID: [id number]
--- NOTE | 2019-09-14 13:55 | PDOC.HOSPP ---
- Subjective Encounter Date: 09/14/19 Encounter Time: 09:45 Subjective: is on vent, sedated not in distress - Objective Vital Signs & Weight: Vital Signs (12 hours) Temp Pulse Resp Pulse Ox 09/14/19 10:09 59 L 09/14/19 10:00 20 09/14/19 08:16 64 09/14/19 08:00 21 H 09/14/19 07:49 96 09/14/19 07:00 99.2 F 09/14/19 06:00 20 09/14/19 04:59 98.3 F 09/14/19 04:00 20 09/14/19 02:57 57 L 09/14/19 02:00 22 H Weight Admit Weight 220 lb 7.396 oz Weight 220 lb 7.396 oz Most Recent Monitor Data Heart Rate from ECG 61 NIBP 135/74 NIBP BP-Mean 94 Respiration from ECG 20 SpO2 95 I&O: 09/13/19 09/14/19 09/15/19 06:59 06:59 06:59 Intake Total 3770.1 4711.2 Output Total 991 1083 250 Balance 2779.1 3628.2 -250 Result Diagrams: 09/14/19 03:08 09/14/19 03:08 Additional Labs: Accuchecks 09/14/19 09/14/19 09/13/19 11:27 03:15 21:41 POC Glucose 100 99 98 09/13/19 18:01 POC Glucose 88 Hospitalist ROS - Medication Medications: Active Medications Generic Name Dose Route Start Last Admin Trade Name Freq PRN Reason Stop Dose Admin Albumin Human 25 gm 09/14/19 14:00 09/14/19 13:53 Albumin 25% IVPB 09/15/19 14:01 25 gm Q6H JONATHON Administration Enoxaparin Sodium 40 mg 09/13/19 09:00 09/14/19 08:07 Lovenox SC 40 mg 0900 JONATHON Administration Famotidine 20 mg 09/12/19 09:00 09/14/19 08:07 Pepcid SLOW IVP 20 mg Q12HR JONATHON Administration Fentanyl Citrate 2,000 mcg/ 100 mls @ 0 mls/hr 09/12/19 00:43 09/14/19 09:18 Sodium Chloride IV 10/12/19 00:43 100 mls INF JONATHON Administration Protocol Per Protocol Cefepime HCl 2 gm/ Sodium 100 mls @ 200 mls/hr 09/12/19 09:00 09/14/19 08:05 Chloride IVPB 100 mls Q12HR JONATHON Administration Metronidazole 500 mg/ Device 100 mls @ 100 mls/hr 09/12/19 12:00 09/14/19 13: 01 IVPB 100 mls 0400,1200,2000 JONATHON Administration Dexmedetomidine HCl 400 mcg/ 100 mls @ 0 mls/hr 09/13/19 11:45 09/14/19 11:42 Sodium Chloride IVPB 100 mls INF JONATHON Administration Protocol Per Protocol Vancomycin HCl 1.75 gm/ Sodium 500 mls @ 250 mls/hr 09/14/19 02:00 09/14/19 02:41 Chloride IVPB 500 mls 0200,1400 JONATHON Administration Dextrose/Sodium Chloride 1,000 mls @ 100 mls/hr 09/14/19 13:15 09/14/19 13:50 D5 1/4 Ns IV 1,000 mls .Q10H JONATHON Administration Lorazepam 2 mg 09/12/19 02:22 09/12/19 20:21 Ativan SLOW IVP 10/12/19 02:22 2 mg Q1H PRN Administration Breakthrough agitation Morphine Sulfate 2 mg 09/12/19 02:22 09/14/19 03:19 Morphine Sulfate SLOW IVP 10/12/19 02:22 2 mg Q1H PRN Administration Breakthrough Pain/Agitation Propofol 1,000 mg 09/12/19 02:22 09/14/19 11:42 Diprivan IV 10/12/19 02:22 1,000 mg INF PRN Administration TO ACHIEVE GOAL RASS Protocol - Exam Eye: PERRL, anicteric sclera ENT: no oropharyngeal lesions, dry oral mucosa Neck: supple, no JVD Heart: RRR, no murmur Respiratory: no wheezes, no rales Gastrointestinal: soft, non-distended, normal bowel sounds, no guarding, no rigidity Extremities: no cyanosis, no edema Neurological: cranial nerve grossly intact, no focal deficits Hosp A/P (1) Sepsis Code(s): A41.9 - SEPSIS, UNSPECIFIED ORGANISM Status: Acute Qualifiers: Sepsis type: sepsis due to unspecified organism Sepsis acute organ dysfunction status: with acute organ dysfunction Severe sepsis acute organ dysfunction type: acute respiratory failure Acute respiratory failure type: with hypoxia Severe sepsis shock status: without septic shock Qualified Code (s): A41.9 - Sepsis, unspecified organism; R65.20 - Severe sepsis without septic shock; J96.01 - Acute respiratory failure with hypoxia (2) Acute respiratory failure with hypoxia Code(s): J96.01 - ACUTE RESPIRATORY FAILURE WITH HYPOXIA Status: Acute (3) Acute colitis Code(s): K52.9 - NONINFECTIVE GASTROENTERITIS AND COLITIS, UNSPECIFIED Status : Acute (4) DM type 2 (diabetes mellitus, type 2) Status: Chronic Qualifiers: Diabetes mellitus intermediate school teacher insulin use: without intermediate school teacher use (5) Parkinson disease Code(s): G20 - PARKINSON'S DISEASE Status: Suspected (6) HTN (hypertension) Code(s): I10 - ESSENTIAL (PRIMARY) HYPERTENSION Status: Chronic Qualifiers: Hypertension type: essential hypertension Qualified Code(s): I10 - Essential (primary) hypertension - Plan weaning per pulm advice is on cefepime, flagyl and vanc, iv fluids hemostable
[2019-09-14] MEDS ORDERED: Electrolyte Replacement Protocol FS PRN (16:00)
--- NOTE | 2019-09-14 17:30 | PRG ---
DATE OF SERVICE: 09/14/2019 SUBJECTIVE: The patient is intubated and sedated. Last time, he had some discomfort when he was woken up. It was decided not to try to extubate until tomorrow. OBJECTIVE: VITAL SIGNS: T-max 99.2, T-current 98, blood pressure 133/83. In is 4711, out is 1083, urine is 1083. LUNGS: Clear. HEART: Regular without clicks, rubs, or murmurs. ABDOMEN: Soft, protuberant, but nondistended, nontender. There are no inguinal hernias. There is no rebound. There is no guarding. The patient is sedated. LABORATORY DATA: White count is dropped from 22,000 on admission to 11 yesterday to 7.6 now. Hemoglobin is 12.9, platelet count 391. Bilirubin is 0.7. AST 17, ALT 13, alkaline phosphatase 51, bicarb 20, anion gap is 8. Sodium is 141. Microbiology; negative blood cultures. ASSESSMENT: Cecum, ascending colon, transverse colon inflamed on CT. No evidence of ischemia. There is evidence of patent branches of the SMA, right colonic, and transverse. There were no signs of venous thrombosis. Clinically, by laboratory studies, the patient is improving. Cultures are negative. His fever has gone. If he continues to have severe pain when he awakens, it may be reasonable to re-scan him and look for mesenteric venous thrombosis. We will continue to follow along with you. Job ID: [id number]
[2019-09-14] MEDS ORDERED: Magnesium 2 GM/50 ML 2 GM in Premix Bag 1 BAG IVPB SCH (18:30)
[2019-09-14] MEDS ORDERED: Potassium Chloride 40 MEQ in Sodium Chloride 0.9% 250 ML 250 ML IVPB SCH (18:30)
[2019-09-15] MEDS: Propofol 1,000 MG/100 ML VIAL IV PRN ×5 (01:51→20:20)
[2019-09-15] MEDS: Albumin 25% 25 GM/100 ML BOT IVPB SCH ×3 (01:51→13:25)
[2019-09-15] MEDS: Vancomycin HCl 1.75 GM in Sodium Chloride 0.9% 500 ML IVPB SCH ×2 (03:16→15:13)
[2019-09-15] MEDS: metroNIDAZOLE 500 MG in Premix Bag 1 BAG IVPB SCH ×3 (03:16→20:19)
[2019-09-15 04:30] LABS: #Eosinphils 0.2 thou/uL (0.0-0.7); #Lymphocytes 0.7 thou/uL (1.20-3.40); #Monocytes 0.5 thou/uL (0.11-0.59); #Neutrophils 5.6 thou/uL (1.40-6.50); %Basophils 0.1 % (0.0-1.0); %Eosinophils 3.5 % (0.0-10.0); %Lymphocytes 9.6 % (21.0-51.0); %Monocytes 7.1 % (0.0-10.0); %Neutrophils 79.7 % (42.0-75.0); Hemoglobin 11.7 g/dL (14.0-18.0); Mean Corpuscular HGB CONC 33.3 g/dL (32.0-36.0); Mean Corpuscular Hemoglobin 29.7 pg (27.0-31.0); Mean Corpuscular Volume 89.3 fL (78.0-98.0); Mean Platelet Volume 7.2 fL (7.4-10.4); Platelet Count 367 thou/uL (130-400); RBC Distribution Width 13.2 % (11.5-14.5); Red Blood Cell (RBC) Count 3.94 mill/uL (4.70-6.10)
[2019-09-15 04:52] LABS: Anion Gap 9 mmol/L (10-20); BUN (Urea Nitrogen) 8 mg/dL (8.4-25.7); Calc. Creatinine Clearance 132 mL/min (70-130); Calcium 7.6 mg/dL (7.8-10.44); Carbon Dioxide 21 mmol/L (23-31); Chloride 114 mmol/L (98-107); Estimated GFR-MDRD Greater than 90; Glucose 110 mg/dL (83-110); Potassium 3.2 mmol/L (3.5-5.1); Sodium 141 mmol/L (136-145)
[2019-09-15] MEDS ORDERED: Potassium Chloride 40 MEQ in Premix Bag 1 BAG IVPB SCH (06:30)
[2019-09-15 07:38] LABS: Actual Bicarbonate (HCO3a) 19.7 mEq/L (22-28); Base Excess (BEa) -6.9 mEq/L (-2.0 to +3.0); CO2 Tension 43.5 mmHg (35.0-45.0); Calcium, Ionized (arterial) 1.16 mmol/L (1.12-1.30); Carboxyhemoglobin (COHb) 0.3 gm% (0.0-3.0); Hemoglobin (Hb) 13.5 g/dL (14.0-18.0); Potassium - ABG Lab 3.34 mmol/L (3.70-5.30); pH, Arterial 7.27 (7.35-7.45)
[2019-09-15 07:39] LABS: O2 Tension (PaO2), arterial 54.1 mmHg (> 60.0)
[2019-09-15 07:40] LABS: ALV-art Gradient 319.325 (0-20); Puncture Site RR
[2019-09-15] MEDS: Famotidine/PF 20 mg/2ml Vial SLOW IVP SCH ×2 (08:00→20:20)
[2019-09-15] MEDS: Enoxaparin Sodium 40 MG/0.4 ML SYRINGE SC SCH (08:00)
[2019-09-15] MEDS: Cefepime 2 GM in Sodium Chloride 0.9% 100 ML IVPB SCH ×2 (08:11→20:27)
[2019-09-15] MEDS ORDERED: Furosemide 40 MG/4 ML VIAL ONE (09:01)
[2019-09-15] MEDS ORDERED: Furosemide 40 MG/4 ML VIAL SLOW IVP SCH (09:15)
[2019-09-15] MEDS: Lorazepam 2 MG/ML VIAL SLOW IVP PRN ×2 (09:33→15:26)
[2019-09-15] MEDS ORDERED: Iopamidol-370 76% 500 ML 1 ML ONE (09:48)
--- NOTE | 2019-09-15 11:31 | CT ---
CT ABDOMEN AND PELVIS WITH IV CONTRAST 09/15/2019 CLINICAL INFORMATION: Colitis. COMPARISON: 09/11/2019 Technique: Multiple contiguous axial CT images are obtained through the abdomen and pelvis with IV contrast. Cor onal reformatted images are provided. FINDINGS: Lower Chest: There has been interval development of small bilateral pleural effusions and associated consolidation. Consolidation may be attributable to atelectasis, but bibasilar pneumonia is a possibility. The heart is mildly enlarged. Vessels: Vascular calcifications are seen in the abdominal aorta and involving the iliac arteries. Abdomen: Portal vein:Not well opacified on this examination due to phase of imaging. Gallbladder: Gallbladder calculus is visualized. Liver: Artifact due to patient's arms down by the side limits evaluation of the hepatic parenchyma, b ut no definite focal hepatic lesion is seen. Spleen: Granulomata visualized. Pancreas: within normal limits. Adrenals: within normal limits. Kidneys: Artifact extending through the kidneys to patient's arms down by the side, no gross abnormal ities seen. There is no hydronephrosis. Bowel: Previously noted wall thickening involving the ascending colon as well as portion of the trans verse colon has improved when compared to the prior exam there is fluid seen within the ascending colon, but definitive wall thickening was not appreciated. Normal caliber loops of small bowel are se en. A nasogastric tube is noted in place with the tip in the most proximal body of the stomach. The most proximal sidehole of the nasogastric tube is near the region of the GE junction. Appendix: Not visualized. Peritoneum: There has been interval development of small amount of intraperitoneal free fluid within the abdomen and pelvis Mesentery and Retroperitoneum: No enlarged mesenteric or retroperitoneal lymph nodes. Abdominal Wall: Minimal subcutaneous edema at the lateral aspect of the abdomen and pelvis. Pelvis: Reproductive Organs: No pelvic masses. Pelvis within normal limits. Bladder: Radford catheter in place in a decompressed urinary bladder. Bones: Degenerative changes lower lumbar spine. IMPRESSION: 1. Previously seen colonic wall thickening involving the ascending and transverse colon has improved when compared to the prior exam. 2. Interval development of bilateral pleural effusions and bibasilar consolidation. Consolidation may be attributable to atelectasis, but pneumonia is a consideration. 3. Interval development of small amount of ascites. 4. Interval placement of a Radford catheter as well as a nasogastric tube. Most proximal side of the na sogastric tube is in the region of the GE junction. Nasogastric tube should be slightly advanced.. 5. Mild cardiomegaly. 6. Cholelithiasis
[2019-09-15] MEDS: D5 1/4 NS 1,000 ML IV SCH ×2 (11:41→20:19)
--- NOTE | 2019-09-15 11:48 | RAD ---
Exam: Chest one view HISTORY:Respiratory distress. Intubated patient. Comparison: 09/11/2018 FINDINGS: Lines and tubes: Redemonstration of endotracheal tube, nasogastric tube and left-sided subclavian vas cular catheter. Distal tip nasogastric tube is not included exam. Cardiac silhouette:Cardiomegaly Aorta: Unremarkable Pulmonary vessels: Normal Costophrenic angles: [place]-like opacities suggesting small bilateral effusions LUNGS: Patchy interstitial alveolar opacities throughout the lung parenchyma. Pneumothorax: None Osseous abnormalities: None IMPRESSION: 1. Possible congestive heart failure. 2. Continued surveillance is recommended
--- NOTE | 2019-09-15 11:59 | PRG ---
DATE OF SERVICE: 09/15/2019 SUBJECTIVE: Mr. Harper has not improved. He was tachypneic this morning. His ventilator was adjusted. OBJECTIVE: LUNGS: Clear anteriorly. HEART: Regular rhythm. ABDOMEN: Soft. EXTREMITIES: Without asymmetry. LABORATORY DATA: Lab work shows a hyperchloremic metabolic acidosis. His anion gap is normal. His ventilatory mechanics have improved with adjustment of his ventilator. I doubt he has bowel, but we will repeat his CAT scan today. He is currently not weanable. IMPRESSION: 1. History of colitis of unclear type, following his right hemicolon and transverse colon, still worried that he may have had ischemic colon. 2. Encephalopathy. 3. Respiratory failure. 4. Obesity. 5. Hyperchloremic acidosis. PLAN: We will continue with D5 quarter normal saline. Critical care time 30 min. Job ID: [id number] MTDD
--- NOTE | 2019-09-15 12:30 | PDOC.HOSPP ---
- Subjective Encounter Date: 09/15/19 Encounter Time: 08:45 Subjective: is sedated and is on vent - Objective Vital Signs & Weight: Vital Signs (12 hours) Temp Pulse Resp BP Pulse Ox 09/15/19 12:00 98.9 F 22 H 09/15/19 10:31 69 112/75 09/15/19 10:00 19 09/15/19 08:20 94 141/71 H 09/15/19 08:00 99.6 F 25 H 95 09/15/19 07:30 150 H 09/15/19 06:00 20 09/15/19 04:00 23 H 09/15/19 02:00 98.3 F 16 Weight Admit Weight 220 lb 7.396 oz Weight 220 lb 7.396 oz Most Recent Monitor Data Heart Rate from ECG 63 NIBP 126/68 NIBP BP-Mean 87 Respiration from ECG 21 SpO2 100 I&O: 09/14/19 09/15/19 09/16/19 06:59 06:59 06:59 Intake Total 4711.2 4461.9 Output Total 1083 1990 1790 Balance 3628.2 2471.9 -1790 Result Diagrams: 09/15/19 04:00 09/15/19 04:00 Additional Labs: Accuchecks 09/15/19 09/14/19 09/14/19 10:36 22:20 17:22 POC Glucose 127 H 97 131 H Hospitalist ROS - Medication Medications: Active Medications Generic Name Dose Route Start Last Admin Trade Name Freq PRN Reason Stop Dose Admin Albumin Human 25 gm 09/14/19 14:00 09/15/19 08:14 Albumin 25% IVPB 09/15/19 14:01 25 gm Q6H JONATHON Administration Enoxaparin Sodium 40 mg 09/13/19 09:00 09/15/19 08:00 Lovenox SC 40 mg 0900 JONATHON Administration Famotidine 20 mg 09/12/19 09:00 09/15/19 08:00 Pepcid SLOW IVP 20 mg Q12HR JONATHON Administration Fentanyl Citrate 2,000 mcg/ 100 mls @ 0 mls/hr 09/12/19 00:43 09/14/19 09:18 Sodium Chloride IV 10/12/19 00:43 100 mls INF JONATHON Administration Protocol Per Protocol Cefepime HCl 2 gm/ Sodium 100 mls @ 200 mls/hr 07/03/20 09:00 09/15/19 08:11 Chloride IVPB 100 mls Q12HR JONATHON Administration Metronidazole 500 mg/ Device 100 mls @ 100 mls/hr 09/12/19 12:00 09/15/19 11: 32 IVPB 100 mls 0400,1200,2000 JONATHON Administration Dexmedetomidine HCl 400 mcg/ 100 mls @ 0 mls/hr 09/13/19 11:45 09/14/19 16:13 Sodium Chloride IVPB 100 mls INF JONATHON Administration Protocol Per Protocol Vancomycin HCl 1.75 gm/ Sodium 500 mls @ 250 mls/hr 09/14/19 02:00 09/15/19 03:16 Chloride IVPB 500 mls 0200,1400 JONATHON Administration Dextrose/Sodium Chloride 1,000 mls @ 100 mls/hr 09/14/19 13:15 09/15/19 11:41 D5 1/4 Ns IV Not Given .Q10H JONATHON Lorazepam 2 mg 09/12/19 02:22 09/15/19 09:33 Ativan SLOW IVP 10/12/19 02:22 2 mg Q1H PRN Administration Breakthrough agitation Morphine Sulfate 2 mg 09/12/19 02:22 09/14/19 03:19 Morphine Sulfate SLOW IVP 10/12/19 02:22 2 mg Q1H PRN Administration Breakthrough Pain/Agitation Propofol 1,000 mg 09/12/19 02:22 09/15/19 12:00 Diprivan IV 10/12/19 02:22 1,000 mg INF PRN Administration TO ACHIEVE GOAL RASS Protocol - Exam General Appearance: ill appearing Eye: PERRL, anicteric sclera ENT: no oropharyngeal lesions, dry oral mucosa Neck: supple, no JVD Heart: RRR, no murmur Respiratory: no wheezes, rales, rhonchi Gastrointestinal: soft, non-tender, non-distended, normal bowel sounds, no guarding, no rigidity Extremities: no cyanosis, 1+ LE edema Neurological: cranial nerve grossly intact, no focal deficits Hosp A/P (1) Sepsis Code(s): A41.9 - SEPSIS, UNSPECIFIED ORGANISM Status: Acute Qualifiers: Sepsis type: sepsis due to unspecified organism Sepsis acute organ dysfunction status: with acute organ dysfunction Severe sepsis acute organ dysfunction type: acute respiratory failure Acute respiratory failure type: with hypoxia Severe sepsis shock status: without septic shock Qualified Code (s): A41.9 - Sepsis, unspecified organism; R65.20 - Severe sepsis without septic shock; J96.01 - Acute respiratory failure with hypoxia (2) Acute respiratory failure with hypoxia Code(s): J96.01 - ACUTE RESPIRATORY FAILURE WITH HYPOXIA Status: Acute (3) Acute colitis Code(s): K52.9 - NONINFECTIVE GASTROENTERITIS AND COLITIS, UNSPECIFIED Status : Acute (4) DM type 2 (diabetes mellitus, type 2) Status: Chronic Qualifiers: Diabetes mellitus [facility] insulin use: without [facility] use (5) Parkinson disease Code(s): G20 - PARKINSON'S DISEASE Status: Suspected (6) HTN (hypertension) Code(s): I10 - ESSENTIAL (PRIMARY) HYPERTENSION Status: Chronic Qualifiers: Hypertension type: essential hypertension Qualified Code(s): I10 - Essential (primary) hypertension - Plan weaning per pulm advice is on cefepime, flagyl and vanc, iv fluids hemostable one dose lasix, has mild vol overload ef of 45% on echo
[2019-09-15 13:21] LABS: Vancomycin, Trough 20.9 ug/mL
--- NOTE | 2019-09-15 13:34 | PRG ---
DATE OF SERVICE: 09/15/2019 SUBJECTIVE: Mr. Harper is still intubated. He has been agitated when weaned. He is little more acidotic and is requiring more oxygen today. He has not been able to tolerate tube feeds. OBJECTIVE: VITAL SIGNS: Temperature max has been 99.6, currently 98.9. Pulse is 150 when he got agitated, but it is 69 presently. Blood pressure 126/68. In's and out's are 4461 and 1990. He is on no pressors. Continues on vancomycin and cefepime and metronidazole. ABDOMEN: Protuberant, tympanitic, soft, possible fluid wave. No shifting dullness. DIAGNOSTIC STUDIES: Chest x-ray today, possible pulmonary edema. CT shows bilateral pleural effusion thickening in the descending colon, transverse colon improved. NG tube needs to be advanced. Small amount of intraperitoneal fluid. No enlarged lymph nodes. ASSESSMENT: 1. Acute gastritis, resolving. CT scan changes improving. 2. Gallstones, seemingly asymptomatic. 3. Some kind of [facility]. 4. NG tube needs to be advanced. RECOMMENDATIONS: 1. Advance NG tube. 2. Consider diuresis. 3. Get records from [facility] regarding his bone cancer in his leg. 4. We will continue antibiotics and expect his gastritis should resolve with time. Job ID: [id number]
[2019-09-15] MEDS: HumaLOG 300 UNITS/3 ML VIAL SC PRN ×2 (15:41→21:59)
--- NOTE | 2019-09-15 17:47 | EKG ---
Test Reason : Blood Pressure : / mmHG Vent. Rate : 077 BPM Atrial Rate : 077 BPM P-R Int : 000 ms QRS Dur : 106 ms QT Int : 480 ms P-R-T Axes : 000 018 -12 degrees QTc Int : 543 ms Sinus rhythm with 1st degree A-V block with Premature atrial complexes Possible Inferior infarct (cited on or before 12-SEP-2019) Anterior infarct , age undetermined Prolonged QT Abnormal ECG When compared with ECG of 12-SEP-2019 01:05, (Unconfirmed) Premature atrial complexes are now Present Incomplete right bundle branch block is no longer Present Anterior infarct is now Present Confirmed by KP LAWSON, DR. Adan ([id number]) on 09/15/2019 5:47:46 PM Referred By: JOSEY Confirmed By:DR. Loco GOODRICH MD
--- NOTE | 2019-09-15 17:48 | EKG ---
Test Reason : Blood Pressure : / mmHG Vent. Rate : 054 BPM Atrial Rate : 054 BPM P-R Int : 300 ms QRS Dur : 106 ms QT Int : 506 ms P-R-T Axes : -12 017 -32 degrees QTc Int : 479 ms Sinus bradycardia with 1st degree A-V block with Premature atrial complexes Cannot rule out Inferior infarct (cited on or before 12-SEP-2019) Anterior infarct (cited on or before 14-SEP-2019) Abnormal ECG When compared with ECG of 14-SEP-2019 18:46, (Unconfirmed) Serial changes of Anterior infarct Present Confirmed by KP LAWSON, DR. Adan ([id number]) on 09/15/2019 5:48:02 PM Referred By: JOSEY Confirmed By:DR. Loco GOODRICH MD
[2019-09-16] MEDS: Propofol 1,000 MG/100 ML VIAL IV PRN ×2 (02:22→12:59)
[2019-09-16] MEDS: Vancomycin HCl 1.75 GM in Sodium Chloride 0.9% 500 ML IVPB SCH ×2 (02:26→14:09)
[2019-09-16] MEDS: metroNIDAZOLE 500 MG in Premix Bag 1 BAG IVPB SCH ×3 (03:51→20:34)
[2019-09-16] MEDS: D5 1/4 NS 1,000 ML IV SCH ×2 (03:57→15:25)
[2019-09-16 04:05] LABS: #Eosinphils 0.2 thou/uL (0.0-0.7); #Monocytes 0.7 thou/uL (0.11-0.59); #Neutrophils 11.7 thou/uL (1.40-6.50); %Basophils 0.1 % (0.0-1.0); %Eosinophils 1.4 % (0.0-10.0); %Lymphocytes 7.2 % (21.0-51.0); %Monocytes 5.1 % (0.0-10.0); %Neutrophils 86.2 % (42.0-75.0); Hemoglobin 11.9 g/dL (14.0-18.0); Mean Corpuscular HGB CONC 34.7 g/dL (32.0-36.0); Mean Corpuscular Volume 89.1 fL (78.0-98.0); Mean Platelet Volume 7.3 fL (7.4-10.4); Platelet Count 397 thou/uL (130-400); RBC Distribution Width 13.1 % (11.5-14.5); Red Blood Cell (RBC) Count 3.86 mill/uL (4.70-6.10); White Blood Cell (WBC) Count 13.6 thou/uL (4.8-10.8)
[2019-09-16 04:15] LABS: Anion Gap 11 mmol/L (10-20); BUN (Urea Nitrogen) 4 mg/dL (8.4-25.7); Calc. Creatinine Clearance 122 mL/min (70-130); Calcium 7.8 mg/dL (7.8-10.44); Carbon Dioxide 22 mmol/L (23-31); Chloride 110 mmol/L (98-107); Estimated GFR-MDRD Greater than 90; Glucose 151 mg/dL (83-110); Sodium 140 mmol/L (136-145)
[2019-09-16 04:18] LABS: Potassium 2.8 mmol/L (3.5-5.1)
[2019-09-16] MEDS ORDERED: Potassium Chloride 40 MEQ in Premix Bag 1 BAG IVPB SCH (04:30)
[2019-09-16] MEDS: Potassium Chloride 40 MEQ in Premix Bag 1 BAG IVPB SCH ×2 (06:28→09:28)
[2019-09-16 07:12] LABS: Actual Bicarbonate (HCO3a) 21.5 mEq/L (22-28); Base Excess (BEa) -2.9 mEq/L (-2.0 to +3.0); Carboxyhemoglobin (COHb) 0.1 gm% (0.0-3.0); Hemoglobin (Hb) 12.6 g/dL (14.0-18.0); O2 Tension (PaO2), arterial 61.5 mmHg (> 60.0); Potassium - ABG Lab 2.88 mmol/L (3.70-5.30); pH, Arterial 7.39 (7.35-7.45)
[2019-09-16 07:15] LABS: Puncture Site RRA
[2019-09-16] MEDS ORDERED: Potassium Chloride 40 MEQ in Sodium Chloride 0.9% 250 ML 250 ML IV SCH (08:00)
[2019-09-16] MEDS: Famotidine/PF 20 mg/2ml Vial SLOW IVP SCH ×2 (09:17→20:30)
[2019-09-16] MEDS: Enoxaparin Sodium 40 MG/0.4 ML SYRINGE SC SCH (09:17)
[2019-09-16] MEDS: Cefepime 2 GM in Sodium Chloride 0.9% 100 ML IVPB SCH ×2 (09:24→20:29)
[2019-09-16] MEDS: Lorazepam 2 MG/ML VIAL SLOW IVP PRN ×2 (10:25→20:30)
--- NOTE | 2019-09-16 12:33 | PDOC.HOSPP ---
- Subjective Encounter Date: 09/16/19 Encounter Time: 08:45 Subjective: on vent, is not oriented, trying to wean - Objective Vital Signs & Weight: Vital Signs (12 hours) Temp Pulse Resp Pulse Ox 09/16/19 10:27 99 09/16/19 10:00 25 H 09/16/19 08:00 98.6 F 21 H 09/16/19 07:45 97 09/16/19 07:05 77 09/16/19 06:00 21 H 09/16/19 04:00 98.7 F 20 09/16/19 02:00 22 H Weight Admit Weight 220 lb 7.396 oz Weight 220 lb 7.396 oz Most Recent Monitor Data Heart Rate from ECG 70 NIBP 96/63 NIBP BP-Mean 74 Respiration from ECG 25 SpO2 97 I&O: 09/15/19 09/16/19 09/17/19 06:59 06:59 06:59 Intake Total 4461.9 4570.5 130 Output Total 1989 3750 775 Balance 2471.9 820.5 -645 Result Diagrams: 09/16/19 03:49 09/16/19 03:49 Additional Labs: Accuchecks 09/16/19 09/15/19 09/15/19 10:35 22:01 15:44 POC Glucose 143 H 154 H 156 H Hospitalist ROS - Medication Medications: Active Medications Generic Name Dose Route Start Last Admin Trade Name Freq PRN Reason Stop Dose Admin Enoxaparin Sodium 40 mg 09/13/19 09:00 09/16/19 09:17 Lovenox SC 40 mg 0900 JONATHON Administration Famotidine 20 mg 09/12/19 09:00 09/16/19 09:17 Pepcid SLOW IVP 20 mg Q12HR JONATHON Administration Fentanyl Citrate 2,000 mcg/ 100 mls @ 0 mls/hr 09/12/19 00:43 09/14/19 09:18 Sodium Chloride IV 10/12/19 00:43 100 mls INF JONATHON Administration Protocol Per Protocol Cefepime HCl 2 gm/ Sodium 100 mls @ 200 mls/hr 09/12/19 09:00 09/16/19 09:24 Chloride IVPB 100 mls Q12HR JONATHON Administration Metronidazole 500 mg/ Device 100 mls @ 100 mls/hr 09/12/19 12:00 09/16/19 11: 48 IVPB 100 mls 0400,1200,2000 JONATHON Administration Dexmedetomidine HCl 400 mcg/ 100 mls @ 0 mls/hr 09/13/19 11:45 09/16/19 10:00 Sodium Chloride IVPB 100 mls INF JONATHON Administration Protocol Per Protocol Vancomycin HCl 1.75 gm/ Sodium 500 mls @ 250 mls/hr 09/14/19 02:00 09/16/19 02:26 Chloride IVPB 500 mls 0200,1400 JONATHON Administration Dextrose/Sodium Chloride 1,000 mls @ 100 mls/hr 09/14/19 13:15 09/16/19 03:57 D5 1/4 Ns IV 1,000 mls .Q10H JONATHON Administration Insulin Human Lispro 0 units 09/12/19 02:34 09/15/19 21:59 Humalog SC 2 unit .MILD SLIDING SCALE PRN Administration Mild Correctional Scale Lorazepam 2 mg 09/12/19 02:22 09/16/19 10:25 Ativan SLOW IVP 10/12/19 02:22 2 mg Q1H PRN Administration Breakthrough agitation Morphine Sulfate 2 mg 09/12/19 02:22 09/14/19 03:19 Morphine Sulfate SLOW IVP 10/12/19 02:22 2 mg Q1H PRN Administration Breakthrough Pain/Agitation Propofol 1,000 mg 09/12/19 02:22 09/16/19 02:22 Diprivan IV 10/12/19 02:22 1,000 mg INF PRN Administration TO ACHIEVE GOAL RASS Protocol - Exam General Appearance: ill appearing Eye: PERRL, anicteric sclera ENT: no oropharyngeal lesions, dry oral mucosa Neck: supple, no JVD Heart: RRR, no murmur Respiratory: no wheezes, no rales Gastrointestinal: soft, non-tender, non-distended, normal bowel sounds Extremities: no cyanosis, 1+ LE edema Neurological: cranial nerve grossly intact, no focal deficits Hosp A/P (1) Sepsis Code(s): A41.9 - SEPSIS, UNSPECIFIED ORGANISM Status: Acute Qualifiers: Sepsis type: sepsis due to unspecified organism Sepsis acute organ dysfunction status: with acute organ dysfunction Severe sepsis acute organ dysfunction type: acute respiratory failure Acute respiratory failure type: with hypoxia Severe sepsis shock status: without septic shock Qualified Code (s): A41.9 - Sepsis, unspecified organism; R65.20 - Severe sepsis without septic shock; J96.01 - Acute respiratory failure with hypoxia (2) Acute respiratory failure with hypoxia Code(s): J96.01 - ACUTE RESPIRATORY FAILURE WITH HYPOXIA Status: Acute (3) Acute colitis Code(s): K52.9 - NONINFECTIVE GASTROENTERITIS AND COLITIS, UNSPECIFIED Status : Acute (4) DM type 2 (diabetes mellitus, type 2) Status: Chronic Qualifiers: Diabetes mellitus senior care insulin use: without senior care use (5) Parkinson disease Code(s): G20 - PARKINSON'S DISEASE Status: Suspected (6) HTN (hypertension) Code(s): I10 - ESSENTIAL (PRIMARY) HYPERTENSION Status: Chronic Qualifiers: Hypertension type: essential hypertension Qualified Code(s): I10 - Essential (primary) hypertension - Plan weaning per pulm advice is on cefepime, flagyl and vanc, iv fluids hemostable is third spacing, needs diuresis ef of 45% on echo prognosis guarded
--- NOTE | 2019-09-16 15:15 | PRG ---
DATE OF SERVICE: 09/16/2019 SUBJECTIVE: Mr. Harper remains on the ventilator. He was unable to be weaned due to significant agitation. He has passed some gas, but has not had any bowel movements over the past day. He is tolerating tube feeds at a rate of 25 mL/h. He has been afebrile today. OBJECTIVE: VITAL SIGNS: Temperature 99.2, blood pressure 117/97, pulse 76, and 96% oxygen saturation on ventilator. GENERAL: Critically ill, sedated, and intubated. HEART: Regular rate and rhythm. LUNGS: Bilateral vent sounds. ABDOMEN: Moderate distention. Tympanitic to percussion. Bowel sounds are hypoactive, but present. EXTREMITIES: No peripheral edema. LABORATORY STUDIES: WBC 13.6, hemoglobin 11.9, and platelets 397. Sodium 140, potassium 2.8, BUN 4, creatinine 0.66, glucose 143, and calcium 7.8. Blood cultures are showing no growth at 48 hours. ASSESSMENT AND PLAN: 1. Acute right-sided colitis, seen on initial CT imaging. This appears to be improving per CT scan yesterday. Unclear whether this was the source of his presentation or not. Certainly, there does not appear to be ongoing ischemia. He has been on broad-spectrum antibiotics and if this represented infectious process, certainly seems to be improving. 2. Gallstones, asymptomatic. 3. Abdominal distention. The patient's abdomen is moderately distended today. He does have present bowel sounds, but they are hypoactive. Hopefully, he is not starting to develop an ileus. He still seems to be tolerating his tube feeds today, but would keep them at a low rate of 25 mL/h for now, monitor stool output and residuals. Job ID: [id number]
--- NOTE | 2019-09-16 16:11 | PRG ---
DATE OF SERVICE: 09/16/2019 SUBJECTIVE: Daniel Harper remains mechanically ventilated. Still encephalopathic. OBJECTIVE: VITAL SIGNS: Heart rates in the 70s, respiratory rates in the 20s, blood pressure is 117/97. LUNGS: Clear. HEART: Regular rhythm. ABDOMEN: Soft. DIAGNOSTIC DATA: CT done yesterday showed improved small bilateral effusions and improved colonic thickening. LABORATORY DATA: White count 13.6, hemoglobin 11.9, platelets 397. Sodium 140, potassium 2.8, chloride 110, bicarb 22, BUN 4, and creatinine 0.66. PLAN: We will continue with supportive care. His encephalopathy needs to improve somewhat before we can consider weaning and extubation. Haldol may help with this. Critical care time 30 min. Job ID: [id number] MTDD
[2019-09-16 16:23] LABS: Potassium 3.7 mmol/L (3.5-5.1)
[2019-09-16] MEDS: HumaLOG 300 UNITS/3 ML VIAL SC PRN (16:44)
[2019-09-16] MEDS: Haloperidol Lactate 5 MG/ML VIAL IM SCH ×2 (17:42→23:23)
[2019-09-17] MEDS: D5 1/4 NS 1,000 ML IV SCH ×2 (00:56→11:30)
[2019-09-17 01:15] LABS: Vancomycin, Trough 21.6 ug/mL
[2019-09-17] MEDS: Propofol 1,000 MG/100 ML VIAL IV PRN ×3 (01:22→19:39)
[2019-09-17] MEDS: Vancomycin HCl 1.75 GM in Sodium Chloride 0.9% 500 ML IVPB SCH (01:29)
[2019-09-17] MEDS: metroNIDAZOLE 500 MG in Premix Bag 1 BAG IVPB SCH ×3 (03:55→19:39)
[2019-09-17 04:18] LABS: #Eosinphils 0.3 thou/uL (0.0-0.7); #Lymphocytes 0.9 thou/uL (1.20-3.40); #Monocytes 0.6 thou/uL (0.11-0.59); #Neutrophils 12.3 thou/uL (1.40-6.50); %Eosinophils 2.1 % (0.0-10.0); %Monocytes 4.5 % (0.0-10.0); %Neutrophils 87.3 % (42.0-75.0); Hemoglobin 12.1 g/dL (14.0-18.0); Mean Corpuscular HGB CONC 34.5 g/dL (32.0-36.0); Mean Corpuscular Hemoglobin 31.2 pg (27.0-31.0); Mean Corpuscular Volume 90.4 fL (78.0-98.0); Mean Platelet Volume 7.2 fL (7.4-10.4); Platelet Count 420 thou/uL (130-400); RBC Distribution Width 13.3 % (11.5-14.5); Red Blood Cell (RBC) Count 3.88 mill/uL (4.70-6.10); White Blood Cell (WBC) Count 14.1 thou/uL (4.8-10.8)
[2019-09-17 04:40] LABS: Anion Gap 10 mmol/L (10-20); BUN (Urea Nitrogen) 6 mg/dL (8.4-25.7); Calc. Creatinine Clearance 118 mL/min (70-130); Calcium 7.7 mg/dL (7.8-10.44); Carbon Dioxide 22 mmol/L (23-31); Chloride 115 mmol/L (98-107); Estimated GFR-MDRD Greater than 90; Glucose 136 mg/dL (83-110); Potassium 3.2 mmol/L (3.5-5.1); Sodium 144 mmol/L (136-145)
[2019-09-17] MEDS: Haloperidol Lactate 5 MG/ML VIAL IM SCH ×3 (05:12→17:10)
[2019-09-17] MEDS ORDERED: Potassium Chloride 40 MEQ in Premix Bag 1 BAG IVPB SCH (05:30)
[2019-09-17] MEDS: Famotidine/PF 20 mg/2ml Vial SLOW IVP SCH ×2 (08:10→19:39)
[2019-09-17] MEDS: Cefepime 2 GM in Sodium Chloride 0.9% 100 ML IVPB SCH ×2 (08:10→20:25)
[2019-09-17] MEDS: Enoxaparin Sodium 40 MG/0.4 ML SYRINGE SC SCH (08:11)
[2019-09-17] MEDS: Lorazepam 2 MG/ML VIAL SLOW IVP PRN ×2 (09:54→16:41)
--- NOTE | 2019-09-17 12:01 | PRG ---
DATE OF SERVICE: 09/17/2019 SUBJECTIVE: Mr. Harper remains sedated on the ventilator. When I tried to wean his sedation, he becomes agitated and he has been unable then to wean off fully of sedation or then from the endotracheal tube. He is tolerating his tube feeds well at a low rate. OBJECTIVE: VITAL SIGNS: Temperature 98.8, pulse 83, and blood pressure 141/105. GENERAL: He is sedated on the vent. LUNGS: Clear to auscultation bilaterally. HEART: Regular rate and rhythm. ABDOMEN: Soft and nondistended. His bowel sounds are active. EXTREMITIES: Trace lower extremity edema. LABORATORY DATA: Creatinine 0.68, bilirubin 0.7, AST 17, ALT 13, alk phos 51, and albumin 3.0. White blood cell count 14.1, hemoglobin 12.1, and platelets 420. IMPRESSION: 1. Abnormal CT scan showing right-sided colon thickening suggestive of colitis on presentation. This might have been an ischemic colitis. He really has not had any diarrhea to suggest an infectious colitis. Followup imaging showed that the colon thickening had improved. He is now tolerating his tube feeds well and we will advance tube feeds further. 2. Sepsis picture on presentation. Source of this has not been clearly identified. It could have been related to his right-sided colitis. Again, the colitis appears to be improving. 3. Encephalopathy. This seems to be the factor preventing him from weaning and making further progress now. There are no signs of cirrhosis based on his labs or imaging. His platelets are over 400. His spleen is not enlarged. His liver is not nodular on imaging. His albumin was over 4 on presentation. His transaminases are in the low teens. Overall again nothing to indicate this is hepatic encephalopathy causing his confusion. 4. Gallstones noted in the gallbladder incidentally by imaging, again does not appear to be related to his acute presentation. RECOMMENDATIONS: 1. Advance his tube feeds. 2. I will sign off for now; however, Dr. Sanders will be rounding tomorrow and will be available as needed. Please call if we can help. Job ID: [id number]
--- NOTE | 2019-09-17 13:20 | PDOC.HOSPP ---
- Subjective Encounter Date: 09/17/19 Subjective: Patient seen and examined the ICU this morning currently orally intubated on mechanical ventilation patient not awake not following commands or answering questions no significant overnight events per ICU nurse - Objective Vital Signs & Weight: Vital Signs (12 hours) Temp Pulse Resp Pulse Ox 09/17/19 12:00 97.9 F 21 H 09/17/19 10:57 83 09/17/19 10:00 27 H 09/17/19 08:00 98.8 F 31 H 94 L 09/17/19 07:34 113 H 09/17/19 06:00 24 H 09/17/19 04:00 27 H 09/17/19 03:00 98.6 F 09/17/19 02:00 24 H Weight Admit Weight 220 lb 7.396 oz Weight 220 lb 7.396 oz Most Recent Monitor Data Heart Rate from ECG 71 NIBP 130/77 NIBP BP-Mean 94 Respiration from ECG 21 SpO2 96 I&O: 09/16/19 09/17/19 09/18/19 06:59 06:59 06:59 Intake Total 4570.5 2925 220 Output Total 3750 2640 856 Balance 820.5 285 636 Result Diagrams: 09/17/19 04:00 09/17/19 04:00 Additional Labs: Accuchecks 09/16/19 09/16/19 22:11 16:33 POC Glucose 126 H 165 H Hospitalist ROS - Medication Medications: Active Medications Generic Name Dose Route Start Last Admin Trade Name Freq PRN Reason Stop Dose Admin Enoxaparin Sodium 40 mg 09/13/19 09:00 09/17/19 08:11 Lovenox SC 40 mg 09 JONATHON Administration Famotidine 20 mg 09/12/19 09:00 09/17/19 08:10 Pepcid SLOW IVP 20 mg Q12HR JONATHON Administration Haloperidol Lactate 5 mg 09/16/19 18:00 09/17/19 11:30 Haldol IM 5 mg Q6HR JONATHON Administration Fentanyl Citrate 2,000 mcg/ 100 mls @ 0 mls/hr 09/12/19 00:43 09/14/19 09:18 Sodium Chloride IV 10/12/19 00:43 100 mls INF JONATHON Administration Protocol Per Protocol Cefepime HCl 2 gm/ Sodium 100 mls @ 200 mls/hr 09/12/19 09:00 09/17/19 08:10 Chloride IVPB 100 mls Q12HR JONATHON Administration Metronidazole 500 mg/ Device 100 mls @ 100 mls/hr 09/12/19 12:00 09/17/19 12: 55 IVPB 100 mls 0400,1200,2000 JONATHON Administration Dexmedetomidine HCl 400 mcg/ 100 mls @ 0 mls/hr 09/13/19 11:45 09/17/19 09:59 Sodium Chloride IVPB 100 mls INF JONATHON Administration Protocol Per Protocol Dextrose/Sodium Chloride 1,000 mls @ 100 mls/hr 09/14/19 13:15 09/17/19 11:30 D5 1/4 Ns IV 1,000 mls .Q10H JONATHON Administration Insulin Human Lispro 0 units 09/12/19 02:34 09/16/19 16:44 Humalog SC 2 unit .MILD SLIDING SCALE PRN Administration Mild Correctional Scale Lorazepam 2 mg 09/12/19 02:22 09/17/19 09:54 Ativan SLOW IVP 10/12/19 02:22 2 mg Q1H PRN Administration Breakthrough agitation Morphine Sulfate 2 mg 09/12/19 02:22 09/14/19 03:19 Morphine Sulfate SLOW IVP 10/12/19 02:22 2 mg Q1H PRN Administration Breakthrough Pain/Agitation Propofol 1,000 mg 09/12/19 02:22 09/17/19 11:30 Diprivan IV 10/12/19 02:22 1,000 mg INF PRN Administration TO ACHIEVE GOAL RASS Protocol - Exam General Appearance: ill appearing Heart: RRR, no murmur Respiratory: no wheezes Gastrointestinal: soft, distended Extremities: no cyanosis Psychiatric: lethargic Hosp A/P (1) Acute colitis Code(s): K52.9 - NONINFECTIVE GASTROENTERITIS AND COLITIS, UNSPECIFIED Status : Acute (2) Acute respiratory failure with hypoxia Code(s): J96.01 - ACUTE RESPIRATORY FAILURE WITH HYPOXIA Status: Acute (3) Diabetes Code(s): E11.9 - TYPE 2 DIABETES MELLITUS WITHOUT COMPLICATIONS Status: Acute (4) Respiratory failure requiring intubation Code(s): J96.90 - RESPIRATORY FAILURE, UNSP, UNSP W HYPOXIA OR HYPERCAPNIA Status: Acute (5) Sepsis Code(s): A41.9 - SEPSIS, UNSPECIFIED ORGANISM Status: Acute Qualifiers: Sepsis type: sepsis due to unspecified organism Sepsis acute organ dysfunction status: with acute organ dysfunction Severe sepsis acute organ dysfunction type: acute respiratory failure Acute respiratory failure type: with hypoxia Severe sepsis shock status: without septic shock Qualified Code (s): A41.9 - Sepsis, unspecified organism; R65.20 - Severe sepsis without septic shock; J96.01 - Acute respiratory failure with hypoxia (6) HTN (hypertension) Code(s): I10 - ESSENTIAL (PRIMARY) HYPERTENSION Status: Chronic Qualifiers: Hypertension type: essential hypertension Qualified Code(s): I10 - Essential (primary) hypertension - Plan Continue with mechanical ventilation and weaning per pulm advice is on cefepime, flagyl and vanc, iv fluids Follow further GI recommendations and may consider Reglan increase tube feedings Continue with diuresis and monitor for third spacing echocardiogram significant for EF of 45% Family now report the patient was diagnosed with possible metastatic lung cancer and was told he has 6 months to live we obtained records were reviewed patient might be a candidate for hospice palliative care prognosis guarded Continue monitor electrolytes replace as needed Plan discussed with ICU nurse
[2019-09-17] MEDS: Vancomycin 1.5 GRAM/300 ML BAG 1.5 GM in Premix Bag 1 BAG IVPB SCH (13:52)
--- NOTE | 2019-09-17 15:55 | PRG ---
DATE OF SERVICE: 09/17/2019 SUBJECTIVE: Daniel Harper is clinically unchanged. He is still encephalopathic. OBJECTIVE: LUNGS: Clear anteriorly. HEART: Regular rhythm. ABDOMEN: Distended, but soft. He is not guarding. EXTREMITIES: Without asymmetry. LABORATORY DATA: White count 14.1, hemoglobin 12.1, and platelets 420. Sodium 144, potassium 3.2, chloride 115, bicarb 22, BUN 6, and creatinine 0.68. PH 7.39, CO2 of 36, and PO2 of 61. I will switch him to D5W noting that his chloride is going up. His chloride with resultant metabolic acidosis will increase his work of breathing. Either way, he is not a candidate for weaning since his encephalopathy has not resolved. He may end up with a tracheostomy. CRITICAL CARE TIME: 30 minutes. Job ID: [id number]
[2019-09-17] MEDS: Dextrose 5% in Water 1,000 ML IV SCH (16:27)
[2019-09-17 23:46] LABS: Actual Bicarbonate (HCO3a) 22.5 mEq/L (22-28); Analyzer IN Cardio OR; Base Excess (BEa) -1.6 mEq/L (-2.0 to +3.0); CO2 Tension 35.9 mmHg (35.0-45.0); Calcium, Ionized (arterial) 1.18 mmol/L (1.12-1.30); Carboxyhemoglobin (COHb) 0.3 gm% (0.0-3.0); Hemoglobin (Hb) 13.5 g/dL (14.0-18.0); Potassium - ABG Lab 3.15 mmol/L (3.70-5.30); pH, Arterial 7.41 (7.35-7.45)
[2019-09-17 23:49] LABS: O2 Tension (PaO2), arterial 47.9 mmHg (> 60.0)
[2019-09-17 23:50] LABS: ALV-art Gradient 406.325 (0-20); Puncture Site RBR
[2019-09-18] MEDS: Propofol 1,000 MG/100 ML VIAL IV PRN ×4 (00:26→20:47)
[2019-09-18] MEDS: Haloperidol Lactate 5 MG/ML VIAL IM SCH ×4 (00:27→18:11)
[2019-09-18] MEDS: Vancomycin 1.5 GRAM/300 ML BAG 1.5 GM in Premix Bag 1 BAG IVPB SCH ×2 (03:52→16:04)
[2019-09-18] MEDS: metroNIDAZOLE 500 MG in Premix Bag 1 BAG IVPB SCH ×3 (04:22→20:48)
[2019-09-18] MEDS: HumaLOG 300 UNITS/3 ML VIAL SC PRN ×3 (04:23→16:11)
[2019-09-18 05:15] LABS: Anion Gap 13 mmol/L (10-20); BUN (Urea Nitrogen) 10 mg/dL (8.4-25.7); Calc. Creatinine Clearance 120 mL/min (70-130); Calcium 8.2 mg/dL (7.8-10.44); Carbon Dioxide 21 mmol/L (23-31); Chloride 114 mmol/L (98-107); Estimated GFR-MDRD Greater than 90; Glucose 149 mg/dL (83-110); Potassium 3.2 mmol/L (3.5-5.1); Sodium 145 mmol/L (136-145)
[2019-09-18 05:44] LABS: Band 29 % (5-11); Eosinophils 2 % (0-10); Hemoglobin 12.6 g/dL (14.0-18.0); Lymphocytes 15 % (21-51); MDiff Complete? YES; Mean Corpuscular HGB CONC 33.8 g/dL (32.0-36.0); Mean Corpuscular Hemoglobin 30.4 pg (27.0-31.0); Mean Corpuscular Volume 89.9 fL (78.0-98.0); Mean Platelet Volume 7.6 fL (7.4-10.4); Monocytes 5 % (0-10); Myelocyte 3 % (0-0); Neutrophil 46 % (42-75); Platelet Count 503 thou/uL (130-400); RBC Distribution Width 13.6 % (11.5-14.5); Red Blood Cell (RBC) Count 4.15 mill/uL (4.70-6.10)
[2019-09-18] MEDS ORDERED: Potassium Chloride 40 MEQ in Premix Bag 1 BAG IVPB SCH (06:00)
[2019-09-18] MEDS: Dextrose 5% in Water 1,000 ML IV SCH ×2 (08:48→20:50)
[2019-09-18] MEDS: Cefepime 2 GM in Sodium Chloride 0.9% 100 ML IVPB SCH ×2 (08:52→20:47)
[2019-09-18] MEDS: Famotidine/PF 20 mg/2ml Vial SLOW IVP SCH ×2 (08:53→20:49)
[2019-09-18] MEDS: Enoxaparin Sodium 40 MG/0.4 ML SYRINGE SC SCH (08:53)
[2019-09-18] MEDS ORDERED: hydrALAZINE 20 MG/ML VIAL SLOW IVP PRN (10:34)
--- NOTE | 2019-09-18 13:11 | PDOC.HOSPP ---
- Subjective Subjective: pt seen today remains intubated no follow commands but some improvement in vitals compare to yesterday no over night events - Objective Vital Signs & Weight: Vital Signs (12 hours) Temp Pulse Resp BP Pulse Ox 09/18/19 12:00 98.6 F 28 H 09/18/19 10:28 100 141/82 H 09/18/19 10:00 28 H 09/18/19 08:00 99.1 F 28 H 98 09/18/19 06:50 94 171/92 H 09/18/19 06:00 24 H 09/18/19 04:00 22 H 09/18/19 03:39 100 09/18/19 03:00 99.8 F H 09/18/19 02:00 27 H Weight Admit Weight 220 lb 7.396 oz Weight 220 lb 7.396 oz Most Recent Monitor Data Heart Rate from ECG 88 NIBP 155/94 NIBP BP-Mean 114 Respiration from ECG 27 SpO2 96 I&O: 09/17/19 09/18/19 09/19/19 06:59 06:59 06:59 Intake Total 2925 4284 100 Output Total 2640 2896 1355 Balance 285 1388 -1255 Result Diagrams: 09/18/19 02:45 09/18/19 02:45 Additional Labs: Accuchecks 09/18/19 09/18/19 09/17/19 11:07 04:23 20:35 POC Glucose 172 H 154 H 141 H 09/17/19 09/17/19 15:45 10:03 POC Glucose 109 145 H Hospitalist ROS - Medication Medications: Active Medications Generic Name Dose Route Start Last Admin Trade Name Severiano PRN Reason Stop Dose Admin Enoxaparin Sodium 40 mg 09/13/19 09:00 09/18/19 08:53 Lovenox SC 40 mg 0900 JONATHON Administration Famotidine 20 mg 09/12/19 09:00 09/18/19 08:53 Pepcid SLOW IVP 20 mg Q12HR JONATHON Administration Haloperidol Lactate 5 mg 09/16/19 18:00 09/18/19 11:58 Haldol IM 5 mg Q6HR JONATHON Administration Fentanyl Citrate 2,000 mcg/ 100 mls @ 0 mls/hr 09/12/19 00:43 09/14/19 09:18 Sodium Chloride IV 10/12/19 00:43 100 mls INF JONATHON Administration Protocol Per Protocol Cefepime HCl 2 gm/ Sodium 100 mls @ 200 mls/hr 09/12/19 09:00 09/18/19 08:52 Chloride IVPB 100 mls Q12HR JONATHON Administration Metronidazole 500 mg/ Device 100 mls @ 100 mls/hr 09/12/19 12:00 09/18/19 11: 59 IVPB 100 mls 0400,1200,2000 JONATHON Administration Dexmedetomidine HCl 400 mcg/ 100 mls @ 0 mls/hr 09/13/19 11:45 09/18/19 10:14 Sodium Chloride IVPB 100 mls INF JONATHON Administration Protocol Per Protocol Vancomycin HCl 1.5 gm/ Device 300 mls @ 200 mls/hr 09/17/19 14:00 09/18/19 03 :52 IVPB 300 mls 0200,1400 JONATHON Administration Dextrose/Water 1,000 mls @ 75 mls/hr 09/17/19 15:45 09/18/19 08:48 D5w IV 1,000 mls .[id number] JONATHON Administration Insulin Human Lispro 0 units 09/12/19 02:34 09/18/19 12:00 Humalog SC 2 unit .MILD SLIDING SCALE PRN Administration Mild Correctional Scale Lorazepam 2 mg 09/12/19 02:22 09/17/19 16:41 Ativan SLOW IVP 10/12/19 02:22 2 mg Q1H PRN Administration Breakthrough agitation Morphine Sulfate 2 mg 09/12/19 02:22 09/14/19 03:19 Morphine Sulfate SLOW IVP 10/12/19 02:22 2 mg Q1H PRN Administration Breakthrough Pain/Agitation Propofol 1,000 mg 09/12/19 02:22 09/18/19 12:00 Diprivan IV 10/12/19 02:22 1,000 mg INF PRN Administration TO ACHIEVE GOAL RASS Protocol - Exam General Appearance: NAD, ill appearing Eye: PERRL Neck: supple Respiratory: rhonchi Gastrointestinal: soft Extremities: no cyanosis Psychiatric: lethargic Hosp A/P (1) Acute colitis Code(s): K52.9 - NONINFECTIVE GASTROENTERITIS AND COLITIS, UNSPECIFIED Status : Acute (2) Acute respiratory failure with hypoxia Code(s): J96.01 - ACUTE RESPIRATORY FAILURE WITH HYPOXIA Status: Acute (3) Diabetes Code(s): E11.9 - TYPE 2 DIABETES MELLITUS WITHOUT COMPLICATIONS Status: Acute (4) Respiratory failure requiring intubation Code(s): J96.90 - RESPIRATORY FAILURE, UNSP, UNSP W HYPOXIA OR HYPERCAPNIA Status: Acute (5) Sepsis Code(s): A41.9 - SEPSIS, UNSPECIFIED ORGANISM Status: Acute Qualifiers: Sepsis type: sepsis due to unspecified organism Sepsis acute organ dysfunction status: with acute organ dysfunction Severe sepsis acute organ dysfunction type: acute respiratory failure Acute respiratory failure type: with hypoxia Severe sepsis shock status: without septic shock Qualified Code (s): A41.9 - Sepsis, unspecified organism; R65.20 - Severe sepsis without septic shock; J96.01 - Acute respiratory failure with hypoxia (6) HTN (hypertension) Code(s): I10 - ESSENTIAL (PRIMARY) HYPERTENSION Status: Chronic Qualifiers: Hypertension type: essential hypertension Qualified Code(s): I10 - Essential (primary) hypertension - Plan Continue with mechanical ventilation and weaning per pulm advice is on cefepime, flagyl and vanc, iv fluids , leukocytosis trending up today will moniotr and f/u blood cx for sensitivty advance tube feeding f/u GI recs Continue with diuresis and monitor for third spacing echocardiogram significant for EF of 45% Family now report the patient was diagnosed with possible metastatic lung cancer and was told he has 6 months to live we obtained records were reviewed patient might be a candidate for hospice palliative care they will meet with palliative prognosis guarded Continue monitor electrolytes replace as needed pt full code for now Plan discussed with ICU nurse
[2019-09-18 13:23] LABS: Vancomycin, Trough 23.3 ug/mL
--- NOTE | 2019-09-18 22:29 | PRG ---
DATE OF SERVICE: 09/18/2019 SUBJECTIVE: Daniel Harper still encephalopathic. OBJECTIVE: VITAL SIGNS: He is afebrile, respiratory rate in the 20s, FiO2 is 40%, and blood pressure 120/80. LUNGS: Clear. HEART: Regular rhythm. ABDOMEN: Distended. He has no guarding. EXTREMITIES: Without asymmetry. NEUROLOGIC: Nonfocal. LABORATORY DATA: White count 18, hemoglobin 12.6, platelets 503. Sodium 145, potassium 3.2, chloride 114, bicarb 21, BUN 10, and creatinine 0.67. IMPRESSION: 1. Encephalopathy leading to intubation. 2. Colitis, improved on CT of unclear etiology. 3. Obesity. 4. Deconditioning. 5. Cholelithiasis, which is an incidental finding. PLAN: Continue supportive care. He is not weanable until his encephalopathy improves. Job ID: [id number]
[2019-09-19] MEDS: Haloperidol Lactate 5 MG/ML VIAL IM SCH ×3 (00:14→12:30)
[2019-09-19] MEDS: Propofol 1,000 MG/100 ML VIAL IV PRN (02:30)
[2019-09-19] MEDS: Morphine 2 MG/ML VIAL SLOW IVP PRN ×2 (02:31→13:59)
[2019-09-19] MEDS: Vancomycin 1.5 GRAM/300 ML BAG 1.5 GM in Premix Bag 1 BAG IVPB SCH (04:44)
[2019-09-19] MEDS: metroNIDAZOLE 500 MG in Premix Bag 1 BAG IVPB SCH ×2 (04:45→12:29)
[2019-09-19 05:18] LABS: Anion Gap 11 mmol/L (10-20); BUN (Urea Nitrogen) 13 mg/dL (8.4-25.7); Calc. Creatinine Clearance 118 mL/min (70-130); Calcium 8.1 mg/dL (7.8-10.44); Carbon Dioxide 24 mmol/L (23-31); Chloride 113 mmol/L (98-107); Estimated GFR-MDRD Greater than 90; Glucose 155 mg/dL (83-110); Magnesium 2.2 mg/dL (1.6-2.6); Potassium 3.1 mmol/L (3.5-5.1); Sodium 145 mmol/L (136-145)
[2019-09-19 05:32] LABS: Band 22 % (5-11); Eosinophils 1 % (0-10); Hemoglobin 11.3 g/dL (14.0-18.0); Hypochromia SLIGHT = 6-15 cells (100X) (0-5/hpf); Lymphocytes 7 % (21-51); MDiff Complete? YES; Mean Corpuscular HGB CONC 33.3 g/dL (32.0-36.0); Mean Corpuscular Hemoglobin 29.8 pg (27.0-31.0); Mean Corpuscular Volume 89.5 fL (78.0-98.0); Mean Platelet Volume 7.3 fL (7.4-10.4); Monocytes 3 % (0-10); Neutrophil 67 % (42-75); Platelet Count 475 thou/uL (130-400); Platelet Morphology Comment Appears Increased; RBC Distribution Width 13.7 % (11.5-14.5); White Blood Cell (WBC) Count 14.9 thou/uL (4.8-10.8)
[2019-09-19] MEDS ORDERED: Potassium Chloride 40 MEQ in Sodium Chloride 0.9% 250 ML 250 ML IV SCH (06:45)
[2019-09-19] MEDS: Dextrose 5% in Water 1,000 ML IV SCH (08:19)
[2019-09-19] MEDS: Famotidine/PF 20 mg/2ml Vial SLOW IVP SCH (09:30)
[2019-09-19] MEDS: Enoxaparin Sodium 40 MG/0.4 ML SYRINGE SC SCH (09:30)
[2019-09-19] MEDS: Cefepime 2 GM in Sodium Chloride 0.9% 100 ML IVPB SCH (09:30)
[2019-09-19 12:00] VITALS: BMI 33.9
--- NOTE | 2019-09-19 12:13 | PDOC.HOSPP ---
- Subjective Encounter Date: 09/19/19 Subjective: Patient seen examined bedside this morning intubated nonresponsive all from commands no significant overnight events - Objective Vital Signs & Weight: Vital Signs (12 hours) Temp Pulse Resp BP Pulse Ox 09/19/19 10:00 25 H 09/19/19 09:57 66 09/19/19 08:00 25 H 93 L 09/19/19 07:11 69 09/19/19 07:00 98.9 F 09/19/19 06:00 30 H 09/19/19 04:00 98.9 F 30 H 09/19/19 02:19 74 149/86 H 09/19/19 02:00 28 H 09/19/19 00:46 66 118/70 Weight Admit Weight 220 lb 7.396 oz Weight 250 lb 0.067 oz Most Recent Monitor Data Heart Rate from ECG 80 NIBP 145/76 NIBP BP-Mean 99 Respiration from ECG 23 SpO2 97 I&O: 09/18/19 09/19/19 09/20/19 06:59 06:59 06:59 Intake Total 4284 4927.5 50 Output Total 2896 2980 590 Balance 1388 1947.5 -540 Result Diagrams: 09/19/19 04:20 09/19/19 04:20 Additional Labs: Accuchecks 09/19/19 09/18/19 09/18/19 09:41 21:03 16:14 POC Glucose 148 H 139 H 194 H Hospitalist ROS - Medication Medications: Active Medications Generic Name Dose Route Start Last Admin Trade Name Freq PRN Reason Stop Dose Admin Enoxaparin Sodium 40 mg 09/13/19 09:00 09/19/19 09:30 Lovenox SC 40 mg 0900 JONATHON Administration Famotidine 20 mg 09/12/19 09:00 09/19/19 09:30 Pepcid SLOW IVP 20 mg Q12HR JONATHON Administration Haloperidol Lactate 5 mg 09/16/19 18:00 09/19/19 06:06 Haldol IM 5 mg Q6HR JONATHON Administration Fentanyl Citrate 2,000 mcg/ 100 mls @ 0 mls/hr 09/12/19 00:43 09/14/19 09:18 Sodium Chloride IV 10/12/19 00:43 100 mls INF JONATHON Administration Protocol Per Protocol Cefepime HCl 2 gm/ Sodium 100 mls @ 200 mls/hr 09/12/19 09:00 09/19/19 09:30 Chloride IVPB 100 mls Q12HR JONATHON Administration Metronidazole 500 mg/ Device 100 mls @ 100 mls/hr 09/12/19 12:00 09/19/19 04: 45 IVPB 100 mls 0400,1200,2000 JONATHON Administration Dexmedetomidine HCl 400 mcg/ 100 mls @ 0 mls/hr 09/13/19 11:45 09/19/19 09:51 Sodium Chloride IVPB 100 mls INF JONATHON Administration Protocol Per Protocol Dextrose/Water 1,000 mls @ 75 mls/hr 09/17/19 15:45 09/19/19 08:19 D5w IV 1,000 mls .[id number] JONATHON Administration Vancomycin HCl 1.5 gm/ Device 300 mls @ 200 mls/hr 09/18/19 16:00 09/19/19 04 :44 IVPB 300 mls 0400,1600 JONATHON Administration Insulin Human Lispro 0 units 09/12/19 02:34 09/18/19 16:11 Humalog SC 2 unit .MILD SLIDING SCALE PRN Administration Mild Correctional Scale Lorazepam 2 mg 09/12/19 02:22 09/17/19 16:41 Ativan SLOW IVP 10/12/19 02:22 2 mg Q1H PRN Administration Breakthrough agitation Morphine Sulfate 2 mg 09/12/19 02:22 09/19/19 02:31 Morphine Sulfate SLOW IVP 10/12/19 02:22 2 mg Q1H PRN Administration Breakthrough Pain/Agitation Propofol 1,000 mg 09/12/19 02:22 09/19/19 02:30 Diprivan IV 10/12/19 02:22 1,000 mg INF PRN Administration TO ACHIEVE GOAL RASS Protocol - Exam General - other findings: Intubated sedated not following commands Respiratory: rales Gastrointestinal: distended Extremities: no cyanosis Hosp A/P (1) Acute colitis Code(s): K52.9 - NONINFECTIVE GASTROENTERITIS AND COLITIS, UNSPECIFIED Status : Acute (2) Acute respiratory failure with hypoxia Code(s): J96.01 - ACUTE RESPIRATORY FAILURE WITH HYPOXIA Status: Acute (3) Diabetes Code(s): E11.9 - TYPE 2 DIABETES MELLITUS WITHOUT COMPLICATIONS Status: Acute (4) Respiratory failure requiring intubation Code(s): J96.90 - RESPIRATORY FAILURE, UNSP, UNSP W HYPOXIA OR HYPERCAPNIA Status: Acute (5) Sepsis Code(s): A41.9 - SEPSIS, UNSPECIFIED ORGANISM Status: Acute Qualifiers: Sepsis type: sepsis due to unspecified organism Sepsis acute organ dysfunction status: with acute organ dysfunction Severe sepsis acute organ dysfunction type: acute respiratory failure Acute respiratory failure type: with hypoxia Severe sepsis shock status: without septic shock Qualified Code (s): A41.9 - Sepsis, unspecified organism; R65.20 - Severe sepsis without septic shock; J96.01 - Acute respiratory failure with hypoxia (6) HTN (hypertension) Code(s): I10 - ESSENTIAL (PRIMARY) HYPERTENSION Status: Chronic Qualifiers: Hypertension type: essential hypertension Qualified Code(s): I10 - Essential (primary) hypertension - Plan Patient with no significant improvement during hospital stay remains intubated with very poor prognosis palliative care met with the family this morning and decision for terminal extubation and palliative care will make patient DNR/DNI Appreciate critical care and palliative care involved will monitor for now very poor prognosis Plan discussed with ICU nurse
--- NOTE | 2019-09-19 12:38 | PDOC.FMACP ---
Advance Care Planning - Problem (1) Palliative care encounter Status: Acute Code(s): Z51.5 - ENCOUNTER FOR PALLIATIVE CARE (2) Acute respiratory failure with hypoxia Status: Acute Code(s): J96.01 - ACUTE RESPIRATORY FAILURE WITH HYPOXIA (3) Respiratory failure requiring intubation Status: Acute Code(s): J96.90 - RESPIRATORY FAILURE, UNSP, UNSP W HYPOXIA OR HYPERCAPNIA (4) Sepsis Status: Acute Code(s): A41.9 - SEPSIS, UNSPECIFIED ORGANISM Qualifiers: Sepsis type: sepsis due to unspecified organism Sepsis acute organ dysfunction status: with acute organ dysfunction Severe sepsis acute organ dysfunction type: acute respiratory failure Acute respiratory failure type: with hypoxia Severe sepsis shock status: without septic shock Qualified Code (s): A41.9 - Sepsis, unspecified organism; R65.20 - Severe sepsis without septic shock; J96.01 - Acute respiratory failure with hypoxia (5) DM type 2 (diabetes mellitus, type 2) Status: Chronic Qualifiers: Diabetes mellitus manager long term care insulin use: without manager long term care use (6) HTN (hypertension) Status: Chronic Code(s): I10 - ESSENTIAL (PRIMARY) HYPERTENSION Qualifiers: Hypertension type: essential hypertension Qualified Code(s): I10 - Essential (primary) hypertension - Note Participants: family, surrogate decision-maker, palliative care Summary: Palliative Care discussed Advanced Care Planning allowed the opportunity to decline. The diagnosis, prognosis and goals of care were discussed. Appropriate forms and documentation to accomplish the goals of care were discussed. All questions were answered. Patient daughter was located and contacted. She has elected to make Mr Harper' s sister surrogate decision maker. Secondary to wishes expressed Mr Harper he had relayed that he did not desire to have his life prolonged in the event of terminal condition or poor meaningful recovery. The sister Mari Munguia is electing to compassionately extubate Mr Harper and transition to comfort measures. DNAR paperwork completed. Time Spent (mins): 20
--- NOTE | 2019-09-19 12:39 | PRG ---
DATE OF SERVICE: 09/19/2019 SUBJECTIVE: Mr. Harper remains encephalopathic. OBJECTIVE: VITAL SIGNS: His resting heart rate is in the 60s, respiratory rates in the 20s, blood pressure 145/76. Intake and outputs positive 1946. LUNGS: Clear anteriorly. HEART: Regular rhythm. ABDOMEN: Soft. LABORATORY DATA: There is no blood gas today. Sodium 145, potassium 3.1, chloride 113, bicarb 24, BUN 13, creatinine 0.68. White count 14.9, hemoglobin 11.3, platelets 475. IMPRESSION: 1. Encephalopathy. 2. Metastatic prostate cancer with bone metastasis. 3. Colitis that appears to be resolving. The etiology of his colitis is not clear. [facility] when he diverted here for altered mental status, was intubated. 4. He has 22% bands on his peripheral smear. Unfortunately, he has bone metastases. Tracheostomy and a PEG are the only options for him to facilitate weaning. I do not feel that this is a great option given that he has a stage IV malignancy. 5. There is apparently supposed to be a family meeting with Palliative Care today. It would not be unreasonable to withdraw care in my opinion. Job ID: [id number]
--- NOTE | 2019-09-19 12:43 | PDOC.PALPN ---
Palliative Progress Note - Subjective Remains sedated with mechanical ventilation. Not able to follow commands. - Objective Vital Signs: Vital Signs - Most Recent Temp Pulse Resp BP Pulse Ox 98.9 F 66 25 H 149/86 H 93 L 09/19/19 07:00 09/19/19 09:57 09/19/19 10:00 09/19/19 02:19 09/19/19 08:00 - Physical Exam Constitutional: encephalitic, ill appearing HEENT: moist MMs, sclera anicteric Deviation from normal: mildly adventicious bilaterally, mechanical ventilation Cardiovascular: RRR Gastrointestinal: soft Deviation from normal: distended Genitourinary: rivera catheter Musculoskeletal: edema present, diffuse muscle atrophy Deviation from normal: no purposeful response Skin: cap refill <2 seconds Deviation from normal: encephalopathic - Assessment (1) Palliative care encounter Code(s): Z51.5 - ENCOUNTER FOR PALLIATIVE CARE Current Visit: Yes Status: Acute (2) Acute respiratory failure with hypoxia Code(s): J96.01 - ACUTE RESPIRATORY FAILURE WITH HYPOXIA Current Visit: Yes Status: Acute (3) Respiratory failure requiring intubation Code(s): J96.90 - RESPIRATORY FAILURE, UNSP, UNSP W HYPOXIA OR HYPERCAPNIA Current Visit: Yes Status: Acute (4) Sepsis Code(s): A41.9 - SEPSIS, UNSPECIFIED ORGANISM Current Visit: Yes Status: Acute Qualifiers: Sepsis type: sepsis due to unspecified organism Sepsis acute organ dysfunction status: with acute organ dysfunction Severe sepsis acute organ dysfunction type: acute respiratory failure Acute respiratory failure type: with hypoxia Severe sepsis shock status: without septic shock Qualified Code (s): A41.9 - Sepsis, unspecified organism; R65.20 - Severe sepsis without septic shock; J96.01 - Acute respiratory failure with hypoxia (5) DM type 2 (diabetes mellitus, type 2) Current Visit: Yes Status: Chronic Qualifiers: Diabetes mellitus terminal gauger insulin use: without terminal gauger use (6) HTN (hypertension) Code(s): I10 - ESSENTIAL (PRIMARY) HYPERTENSION Current Visit: Yes Status: Chronic Qualifiers: Hypertension type: essential hypertension Qualified Code(s): I10 - Essential (primary) hypertension - Plan Plan: Patient daughter was located after receiving number from one of her aunts. Contacted, she has elected to make patient sister Mari surrogate decision maker. Discussed at length multiple morbidities, disease trajectory paired with patient known wishes with bother patient daughter and his sister Mari. In discussing Goal of Care family is electing to compassionately extubate Mr Harper and seek comfort measures. Communicated with Dr Mccurdy and Dr Duarte. Comfort medications ordered. DNAR paperwork completed Family to bedside. Discussed potential need to extend care to hospice to promote optimal end of life care for patient. Will readdress 2 hours post extubation to further discuss with family. Spiritual care notified. Please also refer to Juana Lindsey RN Palliative Care notes in note section. [35] minutes spent on this encounter with >50% of the time in counseling and coordination of care. - ROS Non Response: due to endotracheal tube, due to mental status
[2019-09-19] MEDS: Lorazepam 2 MG/ML VIAL SLOW IVP PRN ×4 (13:18→20:05)
[2019-09-19] MEDS: Morphine 4 MG/ML VIAL SLOW IVP PRN ×8 (13:18→21:18)
[2019-09-19] MEDS: Atropine Sulfate 1% Ophth Soln 5 ml Bottle PO PRN ×4 (15:05→22:07)
[2019-09-19] MEDS ORDERED: Scopolamine 1.5 mg/72 hour Patch TD SCH (22:00)
[2019-09-19 23:26] VITALS: BP 159/77; TEMP 99.8
--- NOTE | 2019-09-23 16:45 | EKG ---
Test Reason : Blood Pressure : / mmHG Vent. Rate : 111 BPM Atrial Rate : 111 BPM P-R Int : 214 ms QRS Dur : 108 ms QT Int : 372 ms P-R-T Axes : -19 -16 070 degrees QTc Int : 505 ms Sinus tachycardia with 1st degree A-V block Incomplete right bundle branch block Inferior infarct , age undetermined Abnormal ECG Confirmed by JV KULKARNI DO ([id number]), photographic editor PAMELA RUIZ ([id number]) on 09/23/2019 4:45:19 PM Referred By: Confirmed By:JV KULKARNI DO
== END 2019-09-19 22:13 | disposition expired | DRG 870 ==
LOC: EDSEX 20:17 → ERS 20:17 → CCU 09-12 01:16 → ONC 09-19 18:58
PROVIDERS: ADMIT Internal Medicine; ATTEND Internal Medicine
PROC: 02HV33Z Insertion of Infusion Device into Superior Vena Cava, Percutaneous Approach (ICD-10-PCS; principal; 2019-09-12)
PROC: 5A1955Z Respiratory Ventilation, Greater than 96 Consecutive Hours (ICD-10-PCS; 2019-09-12)
PROC: 0BH17EZ Insertion of Endotracheal Airway into Trachea, Via Natural or Artificial Opening (ICD-10-PCS; 2019-09-12)
PROC: 3E043XZ Introduction of Vasopressor into Central Vein, Percutaneous Approach (ICD-10-PCS; 2019-09-12)
DX: A41.9 Sepsis, unspecified organism (principal); J96.01 Acute respiratory failure with hypoxia; E87.2 Acidosis; G93.40 Encephalopathy, unspecified; C79.51 Secondary malignant neoplasm of bone; Z51.5 Encounter for palliative care; Z66 Do not resuscitate; I10 Essential (primary) hypertension; E11.9 Type 2 diabetes mellitus without complications; K52.9 Noninfective gastroenteritis and colitis, unspecified; F32.9 Major depressive disorder, single episode, unspecified; F41.9 Anxiety disorder, unspecified; R65.20 Severe sepsis without septic shock; E66.9 Obesity, unspecified; C61 Malignant neoplasm of prostate; K80.80 Other cholelithiasis without obstruction; Z85.830 Personal history of malignant neoplasm of bone; Z98.890 Other specified postprocedural states; Z88.0 Allergy status to penicillin; Z68.33 Body mass index [BMI] 33.0-33.9, adult
CPT/HCPCS: 31500; 36415; 36416; 51702; 71045; 74177; 80048; 80053; 80076; 80202; 81003; 81015; 82553; 82805; 83605; 83690; 83735; 83880; 84100; 84484; 85007; 85025; 85027; 85379; 87040; 93005; 93010; 93306; 94003; 94760; 96361; 96365; 96367; 96374; 96375; J0692; J1630; J1650; J1940; J2060; J2270; J2405; J2704; J3010; J3370; J3475; J3480; J3490; J7030; J7050; P9047; Q9967; S0028